=== PATIENT | male | born 1960 | race Caucasian/White ===

== ENCOUNTER → 2016-10-19 | Outpatient (REF) | payer BC | LOC: M LAB REF 12:48 | PROVIDERS: ATTEND Nurse Practitioner Adult Health | DX: E22.1 Hyperprolactinemia (principal); E29.1 Testicular hypofunction ==

== ENCOUNTER → 2017-04-19 | Outpatient (REF) | payer BC | LOC: M LAB REF 12:59 | PROVIDERS: ATTEND Nurse Practitioner Adult Health | DX: E29.1 Testicular hypofunction (principal) ==

== ENCOUNTER → 2018-01-31 | Outpatient (CLI) | payer BC | LOC: M WUC 18:19 | DX: R05 Cough (principal); J84.9 Interstitial pulmonary disease, unspecified; I51.7 Cardiomegaly | CPT/HCPCS: 71046 ==

== ENCOUNTER 2018-03-26 15:51 | Emergency (ER) | payer BC ==
[2018-03-26 16:54] LABS: BASO % 0.4 % (0.0-1.0); EOS % 0.4 % (0.0-3.0); HEMATOCRIT 35.8 % (42.0-52.0); HEMOGLOBIN 11.6 g/dl (13.5-17.5); IMMATURE GRANULOCYTE % 0.6 % (0-3.0); LYMPH # 1.2 10^3/uL (1.5-4.5); LYMPH % 17.1 % (24.0-44.0); MEAN CORPUSCULAR HEMOGLOBIN 27.4 pg (27.0-33.0); MEAN CORPUSCULAR HGB CONC 32.4 g/dl (32.0-36.5); MEAN CORPUSCULAR VOLUME 84.4 fl (80.0-96.0); MONO # 0.8 10^3/uL (0.0-0.8); MONO % 10.6 % (0.0-5.0); NEUTROPHILS # 5.1 10^3/uL (1.8-7.7); NEUTROPHILS % 70.9 % (36.0-66.0); PLATELET COUNT, AUTOMATED 120 10^3/uL (150-450); RED BLOOD COUNT 4.24 10^6/uL (4.30-6.10); RED CELL DISTRIBUTION WIDTH 15.2 % (11.5-14.5); VENOUS BASE EXCESS 1.4 (-2.0-2.0); VENOUS HCO3 24.8 MEQ/L (23.0-27.0); VENOUS O2 SATURATION 94.8 % (60.0-80.0); VENOUS PARTIAL PRESSURE CO2 35.4 mmHg (38.0-50.0); VENOUS PARTIAL PRESSURE O2 73.5 mmHg (30.0-50.0); VENOUS PH 7.464 UNITS (7.330-7.430); VENOUS STANDARD HCO3 25.6 MEQ/L; VENOUS TOTAL CO2 25.9 MEQ/L (24.0-28.0); WHITE BLOOD COUNT 7.2 10^3/uL (4.0-10.0)
[2018-03-26] MEDS: FUROSEMIDE 40 MG/4 ML VIAL (J1940) IV (17:00)
[2018-03-26 17:08] LABS: D-DIMER QUANT 1785.1 ng/ml (<500)
[2018-03-26] MEDS: IPRATROPIUM 0.5MG/ALBUTEROL 2.5MG INH SOL UD 3ML (DUONEB)(J7620) NEB (17:15)
[2018-03-26 17:19] LABS: ANION GAP 10 MEQ/L (8-16); BLOOD UREA NITROGEN 24 MG/DL (7-18); CALCIUM LEVEL 8.8 MG/DL (8.5-10.1); CARBON DIOXIDE LEVEL 25 MEQ/L (21-32); CHLORIDE LEVEL 109 MEQ/L (98-107); CPK CREATINE PHOSPHOKINASE 137 U/L (39-308); CREATININE FOR GFR 1.07 MG/DL (0.70-1.30); GLOMERULAR FILTRATION RATE > 60.0 (>56); GLUCOSE, FASTING 96 MG/DL (70-100); MB/CK RELATIVE INDEX 1.75 (< OR =4); NT-PRO BNP 1850 PG/ML (<125); POTASSIUM SERUM 3.9 MEQ/L (3.5-5.1); SODIUM LEVEL 144 MEQ/L (136-145); TROPONIN I 0.04 NG/ML (< 0.10)
[2018-03-26] MEDS ORDERED: ISOVUE-370 76% 100ML VIAL (Q9967) As Ordered (17:28)
[2018-03-26 19:23] LABS: PROTHROMBIN TIME 15.4 SECONDS (12.1-14.4)
== END 2018-03-26 19:48 | disposition home or self-care (01) ==
LOC: M ED 15:51
DX: I26.99 Other pulmonary embolism without acute cor pulmonale (principal); I50.9 Heart failure, unspecified; I11.0 Hypertensive heart disease with heart failure; I25.10 Atherosclerotic heart disease of native coronary artery without angina pectoris; Z82.49 Family history of ischemic heart disease and other diseases of the circulatory system; Z87.09 Personal history of other diseases of the respiratory system
CPT/HCPCS: Q9967

== ENCOUNTER → 2018-03-29 | Outpatient (REF) | payer BC ==
[2018-03-29 19:00] LABS: FIBRINOGEN 259 MG/DL (221-452)
[2018-03-29 19:16] LABS: TOTAL PROTEIN 6.5 GM/DL (6.4-8.2)
[2018-03-31 11:35] LABS: ALBUMIN 4.15 GM/DL (3.29-5.55); ALBUMIN % 63.8 % (55.8-66.1); ALPHA-1-GLOBULINS 0.39 GM/DL (0.17-0.41); ALPHA-2-GLOBULINS % 9.2 % (7.1-11.8); BETA-1-GLOBULINS % 7.7 % (4.7-7.2); BETA-2-GLOBULINS 0.32 GM/DL (0.19-0.55); BETA-2-GLOBULINS % 4.9 % (3.2-6.5); GAMMA GLOBULIN % 8.4 % (11.1-18.8)
[2018-03-31 11:36] LABS: GAMMA GLOBULINS 0.55 GM/DL (0.65-1.58)
[2018-03-31 14:08] LABS: IMMUNOTYPING SERUM LAMBDA ABNORMAL (NORMAL)
== END ==
LOC: M LAB REF 17:14
DX: I27.82 Chronic pulmonary embolism (principal)

== ENCOUNTER → 2018-03-31 | Outpatient (REF) | payer BC ==
[2018-04-01 20:06] LABS: TOTAL PROTEIN,RANDOM URINE 82.2 MG/DL (0.0-12.0)
== END ==
LOC: M LAB REF 16:58
DX: R76.8 Other specified abnormal immunological findings in serum (principal)
CPT/HCPCS: 86335

== ENCOUNTER → 2018-04-04 | Outpatient (REF) | payer BC ==
[2018-04-06 14:20] LABS: Lyme Disease IgG/IgM Antibodie <0.91 ISR (0.00-0.90); Lyme Disease IgM Ab Quantitati <0.80 index (0.00-0.79)
== END ==
LOC: M LAB REF 17:58
DX: S41.151A Open bite of right upper arm, initial encounter (principal); W57.XXXD Bitten or stung by nonvenomous insect and other nonvenomous arthropods, subsequent encounter; Y92.009 Unspecified place in unspecified non-institutional (private) residence as the place of occurrence of the external cause

== ENCOUNTER → 2018-04-22 | Outpatient (CLI) | payer BC | LOC: M RAD 11:41 | DX: I26.99 Other pulmonary embolism without acute cor pulmonale (principal); R06.00 Dyspnea, unspecified | CPT/HCPCS: 71046 ==

== ENCOUNTER → 2018-05-14 | Outpatient (CLI) | payer BC | LOC: M SLEEP 20:00 | DX: G47.33 Obstructive sleep apnea (adult) (pediatric) (principal) | CPT/HCPCS: 95811 ==

== ENCOUNTER → 2018-05-16 | Outpatient (CLI) | payer BC ==
[2018-05-16 18:09] LABS: ANION GAP 12 MEQ/L (8-16); BLOOD UREA NITROGEN 101 MG/DL (7-18); CALCIUM LEVEL 9.1 MG/DL (8.5-10.1); CARBON DIOXIDE LEVEL 26 MEQ/L (21-32); CHLORIDE LEVEL 95 MEQ/L (98-107); CREATININE FOR GFR 2.53 MG/DL (0.70-1.30); GLOMERULAR FILTRATION RATE 28.2 (>56); GLUCOSE, FASTING 150 MG/DL (70-100); POTASSIUM SERUM 5.4 MEQ/L (3.5-5.1); SODIUM LEVEL 133 MEQ/L (136-145)
== END ==
LOC: M WUC 11:43
DX: I50.43 Acute on chronic combined systolic (congestive) and diastolic (congestive) heart failure (principal)
CPT/HCPCS: 80048

== ENCOUNTER → 2018-06-23 | Outpatient (CLI) | payer BC ==
[2018-06-23 12:28] LABS: ANION GAP 6 MEQ/L (8-16); BLOOD UREA NITROGEN 21 MG/DL (7-18); CALCIUM LEVEL 8.5 MG/DL (8.5-10.1); CARBON DIOXIDE LEVEL 35 MEQ/L (21-32); CHLORIDE LEVEL 95 MEQ/L (98-107); CREATININE FOR GFR 1.03 MG/DL (0.70-1.30); GLOMERULAR FILTRATION RATE > 60.0 (>56); GLUCOSE, FASTING 140 MG/DL (70-100); HEMATOCRIT 25.9 % (42.0-52.0); HEMOGLOBIN 7.3 g/dl (13.5-17.5); MEAN CORPUSCULAR HEMOGLOBIN 22.7 pg (27.0-33.0); MEAN CORPUSCULAR HGB CONC 28.2 g/dl (32.0-36.5); MEAN CORPUSCULAR VOLUME 80.7 fl (80.0-96.0); POTASSIUM SERUM 3.6 MEQ/L (3.5-5.1); RED BLOOD COUNT 3.21 10^6/uL (4.30-6.10); SODIUM LEVEL 136 MEQ/L (136-145); WHITE BLOOD COUNT 5.8 10^3/uL (4.0-10.0)
[2018-06-23 12:55] LABS: IMMATURE PLATELET FRACTION % 4.4 % (0.0-10.9); PLATELET COUNT, AUTOMATED 55 10^3/uL (150-450)
== END ==
LOC: M WUC 09:51
DX: D64.9 Anemia, unspecified (principal); N18.9 Chronic kidney disease, unspecified
CPT/HCPCS: 80048

== ENCOUNTER → 2018-06-29 | Outpatient (CLI) | payer BC ==
[~2018-06-29] MED LIST: ALBU83IN; AMOX875T2 PO; ANDR1.62; ASPI1TAB PO; BROM1TAB; FERR324T2 PO; FLUTISP; FURO40TA2 PO; LIPI20TA PO; LISI-538; LISI10TA4 PO; METO1TAB32 PO; MIRA3350 PO; MULT1TAB11 PO; OMEP20CA3 PO; POTA10TA14; PROAAER10; STOO100C PO; TORS20TA2; XARE20TA PO; ZYLO300T6
[2018-06-29 17:53] LABS: BLOOD UREA NITROGEN 16 MG/DL (7-18); CALCIUM LEVEL 8.3 MG/DL (8.5-10.1); CARBON DIOXIDE LEVEL 27 MEQ/L (21-32); CHLORIDE LEVEL 105 MEQ/L (98-107); CREATININE FOR GFR 0.99 MG/DL (0.70-1.30); GLOMERULAR FILTRATION RATE > 60.0 (>56); GLUCOSE, FASTING 125 MG/DL (70-100); MAGNESIUM LEVEL 2.2 MG/DL (1.8-2.4); POTASSIUM SERUM 4.6 MEQ/L (3.5-5.1); SODIUM LEVEL 140 MEQ/L (136-145)
== END ==
LOC: M WUC 10:11
PROVIDERS: ATTEND Internal Medicine Nephrology
DX: N18.3 Chronic kidney disease, stage 3 (moderate) (principal); E87.6 Hypokalemia

== ENCOUNTER → 2018-07-07 | Outpatient (CLI) | payer BC ==
[2018-07-07 19:49] LABS: BLOOD UREA NITROGEN 21 MG/DL (7-18); CALCIUM LEVEL 8.8 MG/DL (8.5-10.1); CARBON DIOXIDE LEVEL 29 MEQ/L (21-32); CHLORIDE LEVEL 101 MEQ/L (98-107); CREATININE FOR GFR 0.94 MG/DL (0.70-1.30); GLOMERULAR FILTRATION RATE > 60.0 (>56); GLUCOSE, FASTING 129 MG/DL (70-100); MAGNESIUM LEVEL 1.9 MG/DL (1.8-2.4); POTASSIUM SERUM 4.6 MEQ/L (3.5-5.1); SODIUM LEVEL 138 MEQ/L (136-145)
== END ==
LOC: M WUC 15:50
PROVIDERS: ATTEND Internal Medicine Nephrology
DX: N17.9 Acute kidney failure, unspecified (principal)

== ENCOUNTER → 2018-07-18 | Outpatient (CLI) | payer BC ==
[~2018-07-18] MED LIST changes: -ALBU83IN; +ALBU83IN INH; +AMOX500C PO; -BROM1TAB; +BROM1TAB PO; -FLUTISP; +FLUTISP NARES; +K-TA1TAB PO; -PROAAER10; +PROAAER10 INH; -ZYLO300T6; +ZYLO300T6 PO
[2018-07-18 19:41] LABS: BLOOD UREA NITROGEN 18 MG/DL (7-18); CARBON DIOXIDE LEVEL 27 MEQ/L (21-32); CHLORIDE LEVEL 102 MEQ/L (98-107); GLOMERULAR FILTRATION RATE > 60.0 (>56); GLUCOSE, FASTING 113 MG/DL (70-100); POTASSIUM SERUM 4.3 MEQ/L (3.5-5.1); SODIUM LEVEL 138 MEQ/L (136-145)
== END ==
LOC: M WUC 15:44
PROVIDERS: ATTEND Internal Medicine Nephrology
DX: N17.9 Acute kidney failure, unspecified (principal)

== ENCOUNTER → 2018-07-31 | Outpatient (CLI) | payer BC ==
--- NOTE | 2018-08-03 09:36 | SLEEPCENT ---
DATE OF PROCEDURE: 07/31/2018 ORDERED BY: Dr. Kelley. INTERPRETATION: Nocturnal polysomnography was performed for the titration of pressure therapy in this patient with obstructive sleep apnea syndrome. For testing, a ResMed Matias FX nasal pillow device of large size was used with a double chin strap. Initial pressure of inspiratory 10 over expiratory 5 was applied to the circuit and the lights were extinguished. 7 hours and 57 minutes of data were reviewed. There were 403 minutes of sleep identified. Sleep latency was prolonged at 47 minutes. REM latency was short at 50 minutes. Sleep architecture was reasonably good with five REM cycles noted. Overall sleep efficiency 85.5%. The electrocardiogram showed regular rhythm. Heart rate 60 beats per minute. EEG showed reasonably normal waveforms for awake and sleep stages. Respiratory events were best palliated with inspiratory pressure 12 over expiratory pressure of 6 with some background EMG activity in the limb leads. Limb movement arousal index of 6.7. IMPRESSION: Obstructive sleep apnea syndrome (G47.33). RECOMMENDATIONS: Nightly use of bilevel pressure therapy, inspiratory 12 over expiratory 6.
== END ==
LOC: M SLEEP 20:00
PROVIDERS: ATTEND Internal Medicine Pulmonary Disease
DX: G47.33 Obstructive sleep apnea (adult) (pediatric) (principal)

== ENCOUNTER → 2018-08-03 | Outpatient (CLI) | payer BC ==
[2018-08-03 17:30] LABS: BLOOD UREA NITROGEN 20 MG/DL (7-18); CALCIUM LEVEL 9.3 MG/DL (8.5-10.1); CARBON DIOXIDE LEVEL 28 MEQ/L (21-32); CHLORIDE LEVEL 100 MEQ/L (98-107); CREATININE FOR GFR 1.07 MG/DL (0.70-1.30); GLOMERULAR FILTRATION RATE > 60.0 (>56); GLUCOSE, FASTING 159 MG/DL (70-100); MAGNESIUM LEVEL 1.7 MG/DL (1.8-2.4); SODIUM LEVEL 138 MEQ/L (136-145)
== END ==
LOC: M WUC 15:18
PROVIDERS: ATTEND Internal Medicine Nephrology
DX: N17.9 Acute kidney failure, unspecified (principal)

== ENCOUNTER 2018-08-10 12:52 | Outpatient (RCR) | payer BC ==
--- NOTE | 2018-07-27 14:39 | CARECAPL ---
Assessment Account #s: Initial Assessment General Diagnoses: AVR Date of event: Jun 17, 2018 Physician: Vicente Artis Allergies: Coded Allergies: No Known Drug Allergy (Verified Allergy, Unknown, 03/26/18) Date Entered Program: Jul 27, 2018 Risk strat for cardiac event: Moderate Exercise Date: Jul 27, 2018 Assessment: Initial Assessment Exercise Prescription Plan to build endurance through a monitored exercise program and to educate about cardiac risk factors and healthy life style Modalities initiated: Treadmill (2.0/0 mets 2.53 rpe 2), Cardio-Strider (will add), Nustep (will add), Arm Aerometer (1.5 mets 3.02 rpe3), Dumbells (will add), Recumbent Bike (r2 mets 3.54 rpe 3), Elliptimill (will add later) Frequency: 2-3 Duration (Minutes) 30-60 minutes total exercise a day. 6-15 work intervals in minutes. rest intervals in minutes. Functional Capacity Goal Sustained Metabolic Equivalent of a task (MET) goal of 4.75-5.25 for 15-20 minutes. Intensity: 3-Moderate Progression (METS) Increase by: .5 METS every: 2 sessions Angina with ex: No Target Heart Rate r+ 35-40 beta isael therapy Resistance Training: Yes Reps: 6-8 Hypertension: Yes Hypertension controlled with: Diet Resting 124/90 Peak Exercise BP 170/100 Meds see below Medications Scheduled (Multivitamin Men), 1 TAB PO DAILY, (Reported) Allopurinol (Zyloprim), 300 MG PO QHS, (Reported) Amoxicillin (Amoxicillin), 2,000 MG PO DAILYPRN, (Reported) Atorvastatin Calcium (Lipitor), 20 MG PO QHS, (Reported) Bromocriptine Mesylate (Bromocriptine Mesylate), 2.5 MG PO QHS, (Reported) Docusate Sodium (Stool Softener), 200 MG PO DAILY, (Reported) Ferrous Sulfate (Ferrous Sulfate), 324 MG PO BID, (Reported) Fluticasone Propionate (Fluticasone Propionate), 2 SPRAYS NARES DAILY, (Reported) Furosemide (Furosemide), 40 MG PO BID, (Reported) Lisinopril (Lisinopril), 10 MG PO DAILY, (Reported) Metoprolol Succinate (Metoprolol Succinate ER), 12.5 MG PO DAILY, (Reported) Omeprazole (Omeprazole), 20 MG PO DAILY, (Reported) Potassium Chloride (K-Tab), 40 MEQ PO BID, (Reported) Rivaroxaban (Xarelto), 20 MG PO DAILY, (Reported) Scheduled PRN Albuterol Sulfate (Albuterol Sulfate), 2.5 MG INH Q6H PRN for DYSPNEA, (Reported) Albuterol Sulfate (Proair Hfa), 2 PUFFS INH Q4HP PRN for DYSPNEA, (Reported) Polyethylene Glycol (Miralax), 17 GM PO DAILY PRN for CONSTIPATION, (Reported) Discontinued Medications Amoxicillin/Clavulanate Potas (Amoxicillin/Clavulanate P 875-125 mg), 875 MG PO BID, (Reported) Discontinued Reason: Pt states not taking Potassium Chloride (Potassium Chloride Cr), (Reported) Discontinued Reason: Pt states not taking Torsemide (Torsemide), (Reported) Discontinued Reason: Pt states not taking Target Goals Individual exercise Rx (1) BP 140/90 or 130/80 if DM or CKD (1) Aerobic active 30+min 5 days per week (1) Nutrition Date: Jul 27, 2018 Assessment: Initial Assessment Diabetes Diabetes: No Monitor Blood Sugar at home: No Weight Management Weight (lbs): 248.6 Height (inches): 73 Waist Circumference (Inches): 44 BMI: 32.7 Special Diet: low salt, mediteranean diet, low-fat, regular Alcohol: weekly Alcohol Type: beer Alcohol Amount: other (5-7) Diet Access Tool: Rate your plate Score: 53 Intervention Acid Remover Consult: Yes Nurse/patient discussion: Yes Dietary Goals smaller portions and better choices Education Eating Healthy Target goal LDL-C<100 if triglycerides are >200 Non-HDL-C should be <130 (1) LDL-C<70 for high risk patients (4) HbA1c<7% (1) BMI<25 Waist cir<40in M/<35in F (1) Education Date: Jul 27, 2018 Assessment: Initial Assessment Knowledge Test Score: 10 Family Support: Yes Tobacco use: No Tobacco Use Smokeless tobacco: No Intervention Referral to smoking cessation: No Individual education and couns: No Tobacco Adjunct: No Education class schedule given: No Attended education classes: Yes Education: CAD, Risk factors, med compliance, cardiac A&P, Angina S/S, Sexuality Target Goals Complete cessation of tobacco use (1). Psychosocial Date: Jul 27, 2018 Assessment: Initial Assessment Psych Test (Initial/Discharge) Tool Used: CESD Score: 2 Intervention Physician Consult: No Physician Referral: No Stress Management Class: Yes Uses Stress Management Skills: Yes Education Education: Coping Techniques, S/S depression, Relaxation Techniques Target Goal Assess presence or absence of depression using a valid screening tool (1). Maximize coping skills (2). Positive support system (2). Patient/Program Goal Preventative Medication: Yes Clopidogrel, Yes Beta blockade, Yes Statin/OTR lipid Lowering Fall Risk Assess: No Provider Assessment Session Number: 1 Provider Assessment: Proceed with rehab Isatu Horta RN Jul 27, 2018 14:39
== END 2018-08-11 ==
LOC: M CR 12:52
PROVIDERS: ATTEND Internal Medicine Cardiovascular Disease
DX: Z95.3 Presence of xenogenic heart valve (principal)

== ENCOUNTER → 2018-08-24 | Outpatient (CLI) | payer BC ==
[2018-08-24 17:02] LABS: BLOOD UREA NITROGEN 16 MG/DL (7-18); CALCIUM LEVEL 9.1 MG/DL (8.5-10.1); CARBON DIOXIDE LEVEL 27 MEQ/L (21-32); CHLORIDE LEVEL 105 MEQ/L (98-107); CREATININE FOR GFR 1.14 MG/DL (0.70-1.30); GLOMERULAR FILTRATION RATE > 60.0 (>56); GLUCOSE, FASTING 139 MG/DL (70-100); NT-PRO BNP 345 PG/ML (<125); POTASSIUM SERUM 4.1 MEQ/L (3.5-5.1); SODIUM LEVEL 141 MEQ/L (136-145)
== END ==
LOC: M WUC 14:18
PROVIDERS: ATTEND Internal Medicine Cardiovascular Disease
DX: Z95.2 Presence of prosthetic heart valve (principal)

== ENCOUNTER 2018-09-05 10:06 | Outpatient (RCR) | payer BC ==
--- NOTE | 2018-08-17 15:04 | CARECAPL ---
Assessment Account #s: Re-Assessment I General Diagnoses: AVR Date of event: Jun 17, 2018 Physician: Vicente Artis Allergies: Coded Allergies: No Known Drug Allergy (Verified Allergy, Unknown, 03/26/18) Date Entered Program: Jul 27, 2018 Risk strat for cardiac event: Moderate Exercise Date: Aug 17, 2018 Assessment: Re-Assessment I Exercise Prescription Modalities initiated: Treadmill, Cardio-Strider, Nustep, Arm Aerometer, Dumbells, Recumbent Bike Frequency: 3 Duration (Minutes) minutes total exercise a day. work intervals in minutes. rest intervals in minutes. Functional Capacity Goal Sustained Metabolic Equivalent of a task (MET) goal of for minutes. Intensity: 4-Quite a bit Progression (METS) Increase by: METS every: sessions Angina with ex: No Weight (pounds): 5 Reps: 8-12 Medications Scheduled (Multivitamin Men), 1 TAB PO DAILY, (Reported) Allopurinol (Zyloprim), 300 MG PO QHS, (Reported) Amoxicillin (Amoxicillin), 2,000 MG PO DAILYPRN, (Reported) Atorvastatin Calcium (Lipitor), 20 MG PO QHS, (Reported) Bromocriptine Mesylate (Bromocriptine Mesylate), 2.5 MG PO QHS, (Reported) Docusate Sodium (Stool Softener), 200 MG PO DAILY, (Reported) Ferrous Sulfate (Ferrous Sulfate), 324 MG PO BID, (Reported) Fluticasone Propionate (Fluticasone Propionate), 2 SPRAYS NARES DAILY, (Reported) Furosemide (Furosemide), 40 MG PO BID, (Reported) Lisinopril (Lisinopril), 10 MG PO DAILY, (Reported) Metoprolol Succinate (Metoprolol Succinate ER), 12.5 MG PO DAILY, (Reported) Omeprazole (Omeprazole), 20 MG PO DAILY, (Reported) Potassium Chloride (K-Tab), 40 MEQ PO BID, (Reported) Rivaroxaban (Xarelto), 20 MG PO DAILY, (Reported) Scheduled PRN Albuterol Sulfate (Albuterol Sulfate), 2.5 MG INH Q6H PRN for DYSPNEA, (Reported) Albuterol Sulfate (Proair Hfa), 2 PUFFS INH Q4HP PRN for DYSPNEA, (Reported) Polyethylene Glycol (Miralax), 17 GM PO DAILY PRN for CONSTIPATION, (Reported) Current BP 120/80 Med Change: No Target Goals Individual exercise Rx (1) BP 140/90 or 130/80 if DM or CKD (1) Aerobic active 30+min 5 days per week (1) Nutrition Date: Aug 17, 2018 Assessment: Re-Assessment I Medication Change: No Current Weight (pounds): 250.8 Intervention Casket Upholsterer Consult: Yes Nurse/patient discussion: Yes Target goal LDL-C<100 if triglycerides are >200 Non-HDL-C should be <130 (1) LDL-C<70 for high risk patients (4) HbA1c<7% (1) BMI<25 Waist cir<40in M/<35in F (1) Education Date: Aug 17, 2018 Assessment: Re-Assessment I Intervention Education class schedule given: Yes Attended education classes: Yes Education: cardiac A&P, Angina S/S, Sexuality Target Goals Complete cessation of tobacco use (1). Psychosocial Date: Aug 17, 2018 Assessment: Re-Assessment I Stress Management Class: Yes Uses Stress Management Skills: Yes Education Education: Coping Techniques, S/S depression, Relaxation Techniques Target Goal Assess presence or absence of depression using a valid screening tool (1). Maximize coping skills (2). Positive support system (2). Provider Assessment Session Number: 5 Provider Assessment: No changes Isatu Horta RN Aug 17, 2018 15:04
== END 2018-09-08 ==
LOC: M CR 10:06
PROVIDERS: ATTEND Internal Medicine Cardiovascular Disease
DX: Z95.3 Presence of xenogenic heart valve (principal)

== ENCOUNTER → 2018-09-22 | Outpatient (CLI) | payer BC ==
[2018-09-22 16:38] LABS: BLOOD UREA NITROGEN 18 MG/DL (7-18); CALCIUM LEVEL 9.3 MG/DL (8.5-10.1); CARBON DIOXIDE LEVEL 29 MEQ/L (21-32); CHLORIDE LEVEL 105 MEQ/L (98-107); CREATININE FOR GFR 0.96 MG/DL (0.70-1.30); GLOMERULAR FILTRATION RATE > 60.0 (>56); GLUCOSE, FASTING 81 MG/DL (70-100); NT-PRO BNP 237 PG/ML (<125); POTASSIUM SERUM 4.5 MEQ/L (3.5-5.1); SODIUM LEVEL 141 MEQ/L (136-145)
== END ==
LOC: M WUC 11:55
PROVIDERS: ATTEND Physician Assistant
DX: E78.5 Hyperlipidemia, unspecified (principal); R63.5 Abnormal weight gain; I38 Endocarditis, valve unspecified

== ENCOUNTER 2018-10-07 09:00 | Outpatient (RCR) | payer BC ==
--- NOTE | 2018-09-09 13:59 | CARECAPL ---
Assessment Account #s: Re-Assessment II General Diagnoses: AVR Date of event: Jun 17, 2018 Physician: Vicente Artis Allergies: Coded Allergies: No Known Drug Allergy (Verified Allergy, Unknown, 03/26/18) Date Entered Program: Jul 27, 2018 Risk strat for cardiac event: Moderate Exercise Date: Sep 09, 2018 Assessment: Re-Assessment II Exercise Prescription Modalities initiated: Treadmill, Cardio-Strider, Nustep, Arm Aerometer, Dumbells, Recumbent Bike Frequency: 2-3 Duration (Minutes) minutes total exercise a day. work intervals in minutes. rest intervals in minutes. Functional Capacity Goal Sustained Metabolic Equivalent of a task (MET) goal of for minutes. Intensity: 4-Quite a bit Progression (METS) Increase by: METS every: sessions Angina with ex: No Resistance Training: Yes Weight (pounds): 6 Reps: 8-12 Medications Scheduled (Multivitamin Men), 1 TAB PO DAILY, (Reported) Allopurinol (Zyloprim), 300 MG PO QHS, (Reported) Amoxicillin (Amoxicillin), 2,000 MG PO DAILYPRN, (Reported) Atorvastatin Calcium (Lipitor), 20 MG PO QHS, (Reported) Bromocriptine Mesylate (Bromocriptine Mesylate), 2.5 MG PO QHS, (Reported) Docusate Sodium (Stool Softener), 200 MG PO DAILY, (Reported) Ferrous Sulfate (Ferrous Sulfate), 324 MG PO BID, (Reported) Fluticasone Propionate (Fluticasone Propionate), 2 SPRAYS NARES DAILY, (Reported) Furosemide (Furosemide), 40 MG PO BID, (Reported) Lisinopril (Lisinopril), 10 MG PO DAILY, (Reported) Metoprolol Succinate (Metoprolol Succinate ER), 12.5 MG PO DAILY, (Reported) Omeprazole (Omeprazole), 20 MG PO DAILY, (Reported) Potassium Chloride (K-Tab), 40 MEQ PO BID, (Reported) Rivaroxaban (Xarelto), 20 MG PO DAILY, (Reported) Scheduled PRN Albuterol Sulfate (Albuterol Sulfate), 2.5 MG INH Q6H PRN for DYSPNEA, (Reported) Albuterol Sulfate (Proair Hfa), 2 PUFFS INH Q4HP PRN for DYSPNEA, (Reported) Polyethylene Glycol (Miralax), 17 GM PO DAILY PRN for CONSTIPATION, (Reported) Current BP 126/80 Med Change: No Target Goals Individual exercise Rx (1) BP 140/90 or 130/80 if DM or CKD (1) Aerobic active 30+min 5 days per week (1) Nutrition Date: Sep 09, 2018 Assessment: Re-Assessment II Med Change: No Current Weight (pounds): 264 Intervention Theatre Instructor Consult: Yes Nurse/patient discussion: Yes Education Eating Healthy Target goal LDL-C<100 if triglycerides are >200 Non-HDL-C should be <130 (1) LDL-C<70 for high risk patients (4) HbA1c<7% (1) BMI<25 Waist cir<40in M/<35in F (1) Education Date: Sep 09, 2018 Assessment: Re-Assessment II Intervention Education class schedule given: Yes Education: CAD, Risk factors, med compliance, cardiac A&P, Angina S/S, Sexuality Target Goals Complete cessation of tobacco use (1). Psychosocial Date: Sep 09, 2018 Assessment: Re-Assessment II Stress Management Class: Yes Uses Stress Management Skills: Yes Education Education: Coping Techniques, S/S depression, Relaxation Techniques Target Goal Assess presence or absence of depression using a valid screening tool (1). Maximize coping skills (2). Positive support system (2). Provider Assessment Session Number: 12 Provider Assessment: No changes Isatu Horta RN Sep 09, 2018 13:59
--- NOTE | 2018-10-03 09:38 | CARECAPL ---
Assessment Account #s: Re-Assessment II (reassessment III) General Diagnoses: AVR Date of event: Jun 17, 2018 Physician: Vicente Artis Allergies: Coded Allergies: No Known Drug Allergy (Verified Allergy, Unknown, 03/26/18) Date Entered Program: Jul 27, 2018 Risk strat for cardiac event: Moderate Exercise Date: Oct 03, 2018 Assessment: Re-Assessment II (reassessment III) Exercise Prescription Modalities initiated: Treadmill, Cardio-Strider, Nustep, Arm Aerometer, Dumbells, Recumbent Bike Frequency: 3 Duration (Minutes) minutes total exercise a day. work intervals in minutes. rest intervals in minutes. Functional Capacity Goal Sustained Metabolic Equivalent of a task (MET) goal of for minutes. Intensity: 4-Quite a bit Progression (METS) Increase by: METS every: sessions Angina with ex: No Resistance Training: Yes Weight (pounds): 8 Reps: 8-12 Medications Scheduled (Multivitamin Men), 1 TAB PO DAILY, (Reported) (Vitamin B-Complex), 1 TAB PO DAILY, (Reported) Allopurinol (Zyloprim), 300 MG PO QHS, (Reported) Atorvastatin Calcium (Lipitor), 20 MG PO QHS, (Reported) Bromocriptine Mesylate (Bromocriptine Mesylate), 2.5 MG PO QHS, (Reported) Docusate Sodium (Stool Softener), 200 MG PO DAILY, (Reported) Fluticasone Propionate (Fluticasone Propionate), 2 SPRAYS NARES DAILY, (Reported) Furosemide (Furosemide), 40 MG PO DAILY, (Reported) Lisinopril (Lisinopril), 10 MG PO DAILY, (Reported) Metoprolol Succinate (Metoprolol Succinate ER), 12.5 MG PO DAILY, (Reported) Omeprazole (Omeprazole), 20 MG PO DAILY, (Reported) Potassium Chloride (K-Tab), 40 MEQ PO DAILY, (Reported) Rivaroxaban (Xarelto), 20 MG PO DAILY, (Reported) Scheduled PRN Albuterol Sulfate (Albuterol Sulfate), 2.5 MG INH Q6H PRN for DYSPNEA, (Reported) Albuterol Sulfate (Proair Hfa), 2 PUFFS INH Q4HP PRN for DYSPNEA, (Reported) Polyethylene Glycol (Miralax), 17 GM PO DAILY PRN for CONSTIPATION, (Reported) Discontinued Medications Amoxicillin (Amoxicillin), 2,000 MG PO DAILYPRN, (Reported) Discontinued Reason: Pt states not taking Ferrous Sulfate (Ferrous Sulfate), 324 MG PO BID, (Reported) Discontinued Reason: Pt states not taking Current BP 150/80 Med Change: No Intervention Resistance Training: Yes Education: Self pulse, Ex safety, S/S to report, Low NA diet, BP medication, RPE Scale, Equipment orientation, warm up/cool down, Understand BP, Physical Active Education Goals Met: Yes Target Goals Individual exercise Rx (1) BP 140/90 or 130/80 if DM or CKD (1) Aerobic active 30+min 5 days per week (1) Nutrition Date: Oct 03, 2018 Assessment: Re-Assessment II (reassessment III) Med Change: No Medication Change: No Current Weight (pounds): 264.8 Intervention Program Strategist Consult: Yes Nurse/patient discussion: Yes Education Relate Diabetes in CAD, Eating Healthy Education Goals Met: Yes Target goal LDL-C<100 if triglycerides are >200 Non-HDL-C should be <130 (1) LDL-C<70 for high risk patients (4) HbA1c<7% (1) BMI<25 Waist cir<40in M/<35in F (1) Education Date: Oct 03, 2018 Assessment: Re-Assessment II (reassessment III) Intervention Attended education classes: Yes Education: tobacco triggers, CAD, Risk factors, med compliance, cardiac A&P, Angina S/S, Sexuality Education Goals Met: Yes Target Goals Complete cessation of tobacco use (1). Psychosocial Date: Oct 03, 2018 Assessment: Re-Assessment II (reassessment III) Stress Management Class: Yes Uses Stress Management Skills: Yes Education Education: Coping Techniques, S/S depression, Relaxation Techniques Education Goals Met: Yes Target Goal Assess presence or absence of depression using a valid screening tool (1). Maximize coping skills (2). Positive support system (2). Fall Risk Assess: No Provider Assessment Session Number: 16 Provider Assessment: No changes Isatu Horta RN Oct 03, 2018 08:59
[~2018-10-07 09:00] MED LIST changes: +VITATAB73 PO
== END 2018-10-09 ==
LOC: M CR 09:00
PROVIDERS: ATTEND Internal Medicine Cardiovascular Disease
DX: Z95.3 Presence of xenogenic heart valve (principal)

== ENCOUNTER 2018-10-17 13:52 | Outpatient (RCR) | payer BC ==
[~2018-10-17 13:52] MED LIST changes: -ASPI1TAB PO; +ASPI81TA26 PO
--- NOTE | 2018-10-17 14:47 | CARECAPL ---
Assessment Account #s: Re-Assessment II (discharge assessment) General Diagnoses: AVR Date of event: Jun 17, 2018 Physician: Vicente Artis Allergies: Coded Allergies: No Known Allergies (Unverified , 10/05/18) Date Entered Program: Jul 27, 2018 Risk strat for cardiac event: Moderate Exercise Date: Oct 17, 2018 Assessment: Followup/Discharge Exercise Prescription Modalities initiated: Treadmill, Cardio-Strider, Nustep, Arm Aerometer, Dumbells, Recumbent Bike Frequency: 3 Duration (Minutes) minutes total exercise a day. work intervals in minutes. rest intervals in minutes. Functional Capacity Goal Sustained Metabolic Equivalent of a task (MET) goal of for minutes. Intensity: 3-Moderate Progression (METS) Increase by: METS every: sessions Angina with ex: No Resistance Training: Yes Weight (pounds): 10 Reps: 8-12 Hypertension: Yes Hypertension controlled with: Diet Resting 134/88 Peak Exercise BP 180/90 Meds see below Medications Scheduled (Multivitamin Men), 1 TAB PO DAILY, (Reported) Allopurinol (Zyloprim), 300 MG PO QHS, (Reported) Atorvastatin Calcium (Lipitor), 20 MG PO QHS, (Reported) Bromocriptine Mesylate (Bromocriptine Mesylate), 2.5 MG PO QHS, (Reported) Docusate Sodium (Stool Softener), 200 MG PO DAILY, (Reported) Fluticasone Propionate (Fluticasone Propionate), 2 SPRAYS NARES DAILY, (Reported) Furosemide (Furosemide), 40 MG PO DAILY, (Reported) Lisinopril (Lisinopril), 10 MG PO DAILY, (Reported) Metoprolol Succinate (Metoprolol Succinate), 12.5 MG PO DAILY, (Reported) Omeprazole (Omeprazole), 20 MG PO DAILY, (Reported) Potassium Chloride (K-Tab ER), 40 MEQ PO DAILY, (Reported) Rivaroxaban (Xarelto), 20 MG PO DAILY, (Reported) Vitamin B Complex (Vitamin B Complex), 1 TAB PO DAILY, (Reported) Scheduled PRN Albuterol Sulf (Albuterol Sulfate), 2.5 MG INH Q6H PRN for DYSPNEA, (Reported) Albuterol Sulfate (Proair Hfa), 2 PUFFS INH Q4HP PRN for DYSPNEA, (Reported) Polyethylene Glycol 3350 (Miralax), 17 GM PO DAILY PRN for CONSTIPATION, (Reported) Education Goals Met: Yes Target Goals Individual exercise Rx (1) BP 140/90 or 130/80 if DM or CKD (1) Aerobic active 30+min 5 days per week (1) Nutrition Date: Oct 17, 2018 Assessment: Followup/Discharge Med Change: No Diabetes Diabetes: No Medication Change: No Diet Access Tool: Rate your plate (not completed on d/c) Intervention Structural Layout Worker Consult: Yes Nurse/patient discussion: Yes Diet Class: Yes Referral to Diabetes education: No Referral to lipid clinic: No Referral to weight mangement p: No Education Eating Healthy Education Goals Met: Yes Target goal LDL-C<100 if triglycerides are >200 Non-HDL-C should be <130 (1) LDL-C<70 for high risk patients (4) HbA1c<7% (1) BMI<25 Waist cir<40in M/<35in F (1) Education Date: Oct 17, 2018 Assessment: Followup/Discharge Knowledge Test Score: 10 Intervention Education class schedule given: Yes Attended education classes: Yes Education: CAD, Risk factors, med compliance, cardiac A&P, Angina S/S, Sexuality Education Goals Met: Yes Target Goals Complete cessation of tobacco use (1). Psychosocial Date: Oct 17, 2018 Assessment: Followup/Discharge Psych Test (Initial/Discharge) Tool Used: CESD Score: 3 Intervention Physician Consult: No Physician Referral: No Med Change: Yes Stress Management Class: Yes Uses Stress Management Skills: Yes Education Education: Coping Techniques, S/S depression, Relaxation Techniques Education Goals Met: Yes Target Goal Assess presence or absence of depression using a valid screening tool (1). Maximize coping skills (2). Positive support system (2). Fall Risk Assess: No Provider Assessment Session Number: 20 Provider Assessment: Please add/change: (d/c assessment) Isatu Horta RN Oct 17, 2018 14:47
== END 2018-11-08 ==
LOC: M CR 13:52
PROVIDERS: ATTEND Internal Medicine Cardiovascular Disease
DX: Z95.3 Presence of xenogenic heart valve (principal)

== ENCOUNTER 2018-10-24 12:17 | Outpatient (RCR) | payer SELFPAY | END 2018-11-08 | LOC: M CR 12:17 | PROVIDERS: ATTEND Internal Medicine Cardiovascular Disease | DX: Z95.3 Presence of xenogenic heart valve (principal) ==

== ENCOUNTER → 2019-01-09 | Outpatient (CLI) | payer BC ==
[~2019-01-09] MED LIST changes: +MM S100C PO; -OMEP20CA3 PO; +OMEP20CA4 PO; -STOO100C PO
[2019-01-09 10:51] LABS: BLOOD UREA NITROGEN 17 MG/DL (7-18); CREATININE FOR GFR 0.95 MG/DL (0.70-1.30); GLOMERULAR FILTRATION RATE > 60.0 (>56); GLUCOSE, FASTING 120 MG/DL (70-100)
[2019-01-09 10:52] LABS: CALCIUM LEVEL 8.7 MG/DL (8.5-10.1); CARBON DIOXIDE LEVEL 27 MEQ/L (21-32); CHLORIDE LEVEL 107 MEQ/L (98-107); NT-PRO BNP 42 PG/ML (<125); POTASSIUM SERUM 4.1 MEQ/L (3.5-5.1); SODIUM LEVEL 139 MEQ/L (136-145)
== END ==
LOC: M WUC 09:15
PROVIDERS: ATTEND Internal Medicine Cardiovascular Disease
DX: I50.83 High output heart failure (principal)

== ENCOUNTER 2019-08-31 19:44 | Inpatient (IN) | payer BC ==
[~2019-08-31] VITALS: Ht 188 cm; Wt 130.5 kg
[~2019-08-31 19:44] MED LIST changes: -BROM1TAB PO; +BROM2.5T2 PO; +OMEP1CAP73 PO; -OMEP20CA4 PO
[2019-08-31] MEDS ORDERED: NOREPINEPHRINE 4 MG/4 ML AMP As Ordered ONE (19:58)
[2019-08-31] MEDS ORDERED: NOREPINEPHRINE BITARTRATE 8 MG in D5W 492 ML IV SCH (20:00)
[2019-08-31] MEDS ORDERED: ISOVUE-370 76% 100ML VIAL (Q9967) As Ordered ONE (20:37)
[2019-08-31 20:40] LABS: HEMATOCRIT 48.2 % (42.0-52.0); HEMOGLOBIN 16.7 g/dl (13.5-17.5); MEAN CORPUSCULAR HEMOGLOBIN 31.9 pg (27.0-33.0); MEAN CORPUSCULAR HGB CONC 34.6 g/dl (32.0-36.5); MEAN CORPUSCULAR VOLUME 92.2 fl (80.0-96.0); PLATELET COUNT, AUTOMATED 163 10^3/uL (150-450); RED BLOOD COUNT 5.23 10^6/uL (4.30-6.10)
[2019-08-31 20:43] LABS: WHITE BLOOD COUNT 14.4 10^3/uL (4.0-10.0)
[2019-08-31 20:50] LABS: INR 1.9; PROTHROMBIN TIME 21.5 SECONDS (11.8-14.0)
[2019-08-31 20:51] LABS: PARTIAL THROMBOPLASTIN TIME 39.4 SECONDS (25.0-38.4)
[2019-08-31 20:54] LABS: ATYPICAL LYMPH 4 % (0-5); EOSINOPHILS 3 % (0-3); LYMPHOCYTES 48 % (16-44); METAMYELOCYTES 1 % (0-0); MONOCYTES 2 % (0-5); MYELOCYTES 2 % (0-0); NEUTROPHILS 39 % (28-66); PLATELET ESTIMATE NORMAL (NORMAL)
--- NOTE | 2019-08-31 21:04 | REPVR ---
PROCEDURE INFORMATION: Exam: CT Head Without Contrast Exam date and time: 08/31/2019 8:32 PM Age: 59 years old Clinical indication: Altered mental status/memory loss and other: Cardian arrest; Additional info: AMS TECHNIQUE: Imaging protocol: Computed tomography of the head without contrast. Radiation optimization: All CT scans at this facility use at least one of these dose optimization techniques: automated exposure control; mA and/or kV adjustment per patient size (includes targeted exams where dose is matched to clinical indication); or iterative reconstruction. COMPARISON: No relevant prior studies available. FINDINGS: Brain: There is loss of romo-white differentiation bilaterally, the appearance indicating global ischemia. The degree of sulcal or ventricular effacement, if any, would best be assessed with comparison to prior study. There is no evidence of intracranial hemorrhage. Midline shift: No midline shift. Ventricles: See Brain Finding. Bones/joints: Unremarkable. No acute fracture. Sinuses: The visualized sinuses are unremarkable. The visualized sinuses are unremarkable. Mastoid air cells: There is no mastoid effusion detected. There is no mastoid effusion detected. Soft tissues: Unremarkable. Oropharynx: No tonsillar herniation. IMPRESSION: 1. Findings indicate global ischemia, with loss of romo-white differentiation throughout. Comparison with previous head CT would be helpful to assess for the degree of edema. 2. No tonsillar herniation. 3. No hemorrhage. Electronically signed by: Yuli Mendoza On 08/31/2019 21:03:46 PM
--- NOTE | 2019-08-31 21:12 | REPVR ---
PROCEDURE INFORMATION: Exam: CT Angiography Chest With Contrast Exam date and time: 08/31/2019 8:41 PM Age: 59 years old Clinical indication: Other: Cardiac arrest TECHNIQUE: Imaging protocol: Computed tomographic angiography of the chest with intravenous contrast. 3D rendering: MIP and/or 3D reconstructed images were created by the technologist. Radiation optimization: All CT scans at this facility use at least one of these dose optimization techniques: automated exposure control; mA and/or kV adjustment per patient size (includes targeted exams where dose is matched to clinical indication); or iterative reconstruction. Contrast material: ISOVUE 370; Contrast volume: 75 ml; Contrast route: IV; COMPARISON: CT ANGIO CHEST 03/26/2018 5:32 PM FINDINGS: Tubes, catheters and devices: ET tube is in the trachea above the radha. Pulmonary arteries: No pulmonary embolism identified. Aorta: Unremarkable. No aortic aneurysm. No aortic dissection. Lungs: Dependent atelectasis in both lungs. Pleural space: No pleural effusion. No pneumothorax. Heart: Cardiomegaly. Mediastinum: Cardiomediastinal postsurgical changes are noted. Lymph nodes: No lymphadenopathy. Bones/joints: Unremarkable. No acute fracture. Soft tissues: Unremarkable. IMPRESSION: 1. Dependent atelectasis in both lungs. 2. Cardiomegaly. Electronically signed by: Yuli Mendoza On 08/31/2019 21:12:16 PM
[2019-08-31 21:16] LABS: CK-MB VALUE MASS 2.7 NG/ML (<3.6); CREATININE FOR GFR 1.46 MG/DL (0.70-1.30); MB/CK RELATIVE INDEX 1.56 (< OR =4); POTASSIUM SERUM 3.6 MEQ/L (3.5-5.1); TROPONIN I 0.12 NG/ML (< 0.10)
[2019-08-31] MEDS ORDERED: LACRILUBE (AKWA TEARS) OPHTH OINT 3.5 GM OU PRN (22:00)
[2019-08-31] MEDS ORDERED: ACETAMINOPHEN 650 MG SUPP PR PRN (22:00)
[2019-08-31] MEDS ORDERED: ACETAMINOPHEN 650 MG SUPP PR ONE (22:00)
[2019-08-31] MEDS ORDERED: PROPOFOL 1,000 MG/100 ML VIAL As Ordered ONE (22:07)
[2019-08-31] MEDS: FAMOTIDINE IV BAG 20 MG in IV 1 EA IV SCH (22:15)
[2019-08-31] MEDS: propofoL 1,000 MG in IV 1 EA IV SCH ×2 (22:16→22:36)
[2019-08-31 23:22] LABS: MAGNESIUM LEVEL 2.2 MG/DL (1.8-2.4)
[2019-08-31 23:49] LABS: PHOSPHORUS LEVEL 9.1 MG/DL (2.5-4.9)
[2019-09-01] VITALS (62 sets, daily range): BP systolic 67–182; BP diastolic 40–108; O2SAT 98–100
--- NOTE | 2019-09-01 01:13 | HPEPDOC ---
[facility] Medical History & Physical Date of Admission Aug 31, 2019 Date of Service: Aug 31, 2019 Attending Physician: ALLY NORIEGA DO History and Physical CHIEF COMPLAINT: Cardiac arrest HISTORY OF PRESENT ILLNESS: Patient is a 59-year-old male who presents to the emergency department on 08/31/2019 after cardiac arrest status post ROSC. Patient is currently intubated and unable to provide further history. Information obtained from ED staff and family bedside. Per , patient had been feeling fine all day without any reported complaints. Patient had just come back from changing a light bulb when he suddenly collapsed and was unresponsive. At that time with called 911. [place] states she was instructed to start CPR by only took a few compressions before emergency personnel responded. reports that EMS arrived at patient's bedside approximately 10 minutes after initial collapse. Patient reportedly had return to circulation after CPR with an initial rate of A. fib with RVR, but interrupted a hospital suffered asystolic cardiac arrest. Patient achieved for asking and Route however CPR time apparently prolonged. In ED patient was noted to be hypotensive and started on Levaquin. LMA was replaced with endotracheal intubation. Patient remained unresponsive with pupils fixed and dilated. Initial head CT showed poor romo-white matter differentiation concerning for anoxic injury. Apparently it has met was initiated by the ED. Per ED physician, we'll patient in the emergency department he opened his eyes spontaneously and was biting at the tube and therefore propofol was started. At time of evaluation in the ED patient was intubated and sedated on propofol. It had been titrated off. 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 However patient did receive aortic valve replacement approximately 12 years ago which needed revision in June 2018. Patient also with aortic aneurysm requiring repair at approximately 2009. She states that she follows up with his doctors and regulator operator regularly at [facility]. He's never had any issues with coronary artery disease. Patient's only known history of arrhythmias with atrial fibrillation following aortic valve replacement for which he currently takes Xarelto. PAST MEDICAL HISTORY: 1. Hypertension. 2. Aortic aneurysm status post repair in approximately 2009. 3. Aortic valve replacement status post replacement approximately 2007 with revision in June 2018. 4. History of atrial fibrillation associated with aortic valve replacement. 5. History of acute kidney injury requiring dialysis for prolonged prolonged hospitalization due to sepsis area per kidneys made full recovery and dialysis has not been needed for many years. PAST SURGICAL HISTORY: 1. Aortic valve replacement in 2007 with revision in June 2018 2. Aortic aneurysm repair approximately 2009 SOCIAL HISTORY: Marital status: Tobacco use: Denies ETOH: Denies Illicit drug use: Denies FAMILY HISTORY: Family history unknown at this time ALLERGIES: Please see below. REVIEW OF SYSTEMS: Unable to be obtained due to current clinical condition. HOME MEDICATIONS: Please see below. PHYSICAL EXAMINATION: VITAL SIGNS: Please see below. GENERAL: Unresponsive HENT: Normocephalic atraumatic EYES: Pupils pinpoint bilaterally, no scleral icterus CARDIOVASCULAR: Slightly tachycardia with heart rate in the 110s, no lower extremity edema RESPIRATORY: Coarse breath sounds bilaterally, patient intubated ABDOMINAL: Soft, nondistended, hypoactive bowel sounds EXTREMITIES: No spontaneous movements of upper or lower extremities NEUROLOGICAL: Unresponsive with GCS of 2T SKIN: Warm and dry, midline sternal surgical scar LABORATORY DATA: See below. IMAGING: CT of the head independently reviewed with diffuse poor romo-white matter differentiation noted MICROBIOLOGY: Please see below. ASSESSMENT AND PLAN: #Asystolic Cardiac Arrest - Unknown etiology this time, however, suspect cardiac cause given significant c ardiac history and sudden collapse - Plan for echo in the morning. Heparin drip considered however patient undergoing targeted temperature management and with recent dosing of Xarelto Heparin drip to be held pending echo and elevated troponins. No ST elevation noted on EKG - Will start targeted-temperature management to temperature 36C, monitor I's every 4 hours, including ABG -Will use propofol for sedation - Plan for Art-line and central line placement - Initial CT head showing signs of anoxic injury with likely poor outcome #Anoxic encephalopathy - CT head with poor romo-white matter differentiation highly suggestive of severe anoxic injury - Discussed at length with family will proceed with targeted temperature management and await neurologic status - If no improvement in mentation will consider repeat CT had or MRI in 48-72 hours #Acute hypoxic and hypercapnic respiratory failure - Secondary to cardiac arrest - Currently intubated, monitor ABGs every 4 hours #Cardiogenic shock - With Levophed started in emergency department now titrated off - Will resume Levophed if needed to maintain a map greater than 65 #TARSHA - Secondary cardiac arrest - Continues to have good urine output, will monitor strict I's and O's #Hyperglycemia - No known history of diabetes - Will check A1c - Start insulin drip on hypothermia #Afib with RVR - Reported per EMS, now sinus tach - Patient with a history of A. fib on Xarelto - We will consider starting heparin drip in the morning echo and troponins are pending Diet: NPO while undergoing hypothermia DVT/GI Ppx: Heparin subcutaneous, Pepcid L/T/D: ETT, OG, right femoral central line, left radial art line, Thomas, rectal temperature probe Drips: Propofol, and insulin Code Status: Full code. With this patient's surrogate decision maker area discussed at length with who at this time would like patient to be full code. We addressed with family daily as hospital course progresses. Dispo: We will continue to monitor in the ICU was as of 1:1. Critical Care Time: 45 minutes. Time spent obtaining history, evaluated patient, interpreting labs, and assessing success of interventions. Time spent independen t of other providers and total procedures.. [id number] Vital Signs Vital Signs Date Time Temp Pulse Resp B/P (MAP) Pulse Ox O2 Delivery O2 Flow Rate FiO2 08/31/19 21:15 106 22 97 Ventilator 08/31/19 21:10 199/116 (143) 08/31/19 20:13 15.0 08/31/19 20:09 90 08/31/19 20:00 98.0 Laboratory Data Labs 24H Laboratory Tests 2 08/31/19 20:10: POC pH (Misc Panel) 6.920*L, POC Base Excess (Misc Panel) -17.0L, POC Saturated Percent O2 (Misc) 92L, POC pO2 (Misc Panel) 104.0, POC pCO2 (Misc Panel) 74.5*H, POC HCO3 (Misc Panel) 15.3L, POC Total CO2 (Misc Panel) 18.0L 08/31/19 20:27: Immature Granulocyte % (Auto) , Neutrophils (%) (Auto) , Lymphocytes # (Auto) , Nucleated Red Blood Cells % (auto) 0.1H, Neutrophils 39, Band Neutrophils 1, Lymphocytes (Manual) 48H, Monocytes (Manual) 2, Eosinophils (Manual) 3, Metamyelocytes 1H, Myelocytes 2H, Atypical Lymphocytes 4, Red Blood Cell Morphology NORMAL, Platelet Estimate NORMAL, Prothrombin Time 21.5H, Prothromb Time International Ratio 1.90, Activated Partial Thromboplast Time 39.4H, Anion Gap 18H, Glomerular Filtration Rate 53.0L, Calcium Level 8.0L, Phosphorus Level 9.1H, Magnesium Level 2.2, Total Creatine Kinase 173, Creatine Kinase MB 2.7, Creatine Kinase MB Relative Index 1.56, Troponin I 0.12H 08/31/19 21:22: POC pH (Misc Panel) 7.040*L, POC Base Excess (Misc Panel) -15.0L, POC Saturated Percent O2 (Misc) 98, POC pO2 (Misc Panel) 159.0H, POC pCO2 (Misc Panel) 58.1H, POC HCO3 (Misc Panel) 15.7L, POC Total CO2 (Misc Panel) 17.0L 09/01/19 00:53: Bedside Glucose (Misc Panel) 193H CBC/BMP Laboratory Tests 08/31/19 20:27 Home Medications Scheduled (Multivitamin Men) 1 Tab Tab, 1 TAB PO DAILY Allopurinol (Zyloprim) 300 Mg Tab, 300 MG PO QHS Atorvastatin Calcium (Lipitor) 20 Mg Tab, 20 MG PO QHS Bromocriptine Mesylate (Bromocriptine Mesylate) 2.5 Mg Tab, 2.5 MG PO QHS Fluticasone Propionate (Fluticasone Propionate) 50 Mcg/Act Spr, 2 SPRAYS NARES DAILY Furosemide (Furosemide) 40 Mg Tab, 40 MG PO DAILY Lisinopril (Lisinopril) 10 Mg Tab, 10 MG PO DAILY Metoprolol Succinate (Metoprolol Succinate) 25 Mg Tab, 12.5 MG PO DAILY Omeprazole (Omeprazole) 20 Mg Cap, 20 MG PO DAILY Potassium Chloride (K-Tab ER) 20 Meq Tab, 40 MEQ PO DAILY Rivaroxaban (Xarelto) 20 Mg Tab, 20 MG PO DAILY Vitamin B Complex (Vitamin B Complex) 1 Tab Tab, 1 TAB PO DAILY Scheduled PRN Albuterol Sulf (Albuterol Sulfate) 2.5 Mg/3 Ml Nebu, 2.5 MG INH Q6H PRN for DYSPNEA Albuterol Sulfate (Proair Hfa) 108 Mcg/Act Aer, 2 PUFFS INH Q4HP PRN for DYSPNEA Allergies Coded Allergies: No Known Allergies (Unverified , 10/05/18) A-FIB/CHADSVASC A-FIB History Current/History of A-Fib/PAF?: Yes Current PO Anticoag Therapy: Yes Age/Risk Factor Scoring CHADSVASC: CHADSVASC Response (Comments) Value Age Risk Factor Age < 65 years old 0 Gender Risk Factor Male 0 Hx of CHF No 0 Hx of HTN Yes 1 Hx of Stroke/TIA/or VTE No 0 Hx of Diabetes No 0 Hx of Vascular Disease No 0 Total 1 Treatment Treatment ordered: Holding Other Other anticoagulant ordered: Holding Xarelto, plan for heparin gtt in the am Reason Anticoagulant not given: Other Other reason anticoagulant not: Hypothermia initiated ALLY NORIEGA DO Sep 01, 2019 01:13
--- NOTE | 2019-09-01 01:14 | ROOPDOC ---
[facility] Report Of Operation Report of Operation DATE OF PROCEDURE: 08/31/2019 PROCEDURE: Unsuccessful attempt at right internal jugular central line placement followed by successful placement of right femoral central line placement under ultrasound guidance INDICATION: Cardiac arrest CONSENT: Consent was obtained from away prior to procedure. All risks, benefits, alternatives were explained at length. All questions answered. Signed consent in chart. PROCEDURE NOTE: A time-out was called prior to procedure verifying patient, procedure, indication, and necessary treatment. The patient with placed in supine position for central line placement. The patient's right neck was prepped and draped in sterile fashion a finder needle was utilized to access the right internal jugular. Multiple attempts to thread the catheter resulted in resistance despite visualization of the tip of the guidewire in the IJ and continued blood return. After multiple unsuccessful attempts, central and placement at right internal jugular site was abandoned. The finder needle was withdrawn and pressure was applied at the site of insertion until hemostasis was achieved. Decision was made to place a right femoral central line at that time. The patient was prepped and draped in sterile fashion for right femoral central line placement. Finder needle was initially inserted into the right from femoral artery with pulsatile blood return. Finder needle was removed and pressure was held until hemostasis was achieved. No hematoma noted. A triple lumen 7 Cymraes catheter was introduced into the right common femoral vein using Seldinger technique under ultrasound guidance. The catheter was removed completely over the guidewire and appropriate nonpulsatile blood was returned. Each lumen of the catheter was evacuated of air and flushed with sterile saline. Catheter was sutured in place to the skin and a sterile dressing applied. The patient tolerated the procedure well with no apparent complications noted. Estimated blood loss, approximately 30 mL. ALLY NORIEGA DO Sep 01, 2019 01:14
[2019-09-01] MEDS ORDERED: LORazepam 2 MG/ML VIAL (J2060) IV PRN (01:15)
--- NOTE | 2019-09-01 01:15 | ROOPDOC ---
[facility] Report Of Operation Report of Operation DATE OF PROCEDURE: 08/31/19 PROCEDURE: Left Radial Arterial Line Placement Under Ultrasound Guidance INDICATION: [Hypotension] CONSENT: Consent was obtained from patient prior to procedure. All risks, benefits, alternatives were explained at length. All questions answered. Signed consent in chart. PROCEDURE NOTE: A time-out was called prior to procedure verifying patient, procedure, indication, and necessary treatment. Catracho's test was performed to ensure adequate perfusion. The patient's left wrist was prepped and draped in sterile fashion. A 20-gauge Arrow arterial line was introduced into the radial artery under ultrasound guidance. The catheter was threaded smoothly over the guidewire and the needle was removed with appropriate pulsatile blood return. The catheter was then sutured in placed and a sterile dressing was applied. The perfusion to the distal extremity was checked and adequate. The patient tolerated the procedure well with no apparent complications. Estimated blood loss less than 2 mL. ALLY NORIEGA DO Sep 01, 2019 01:15
[2019-09-01] MEDS ORDERED: GLUCOSE 4 GM CHEW TABLET PO PRN (01:30)
[2019-09-01] MEDS ORDERED: GLUCAGON FOR INJ 1 MG VIAL (J1610) SC PRN (01:30)
[2019-09-01] MEDS ORDERED: DEXTROSE 50% 50 ML SYRINGE IV PRN (01:30)
[2019-09-01] MEDS: propofoL 1,000 MG in IV 1 EA IV SCH ×3 (01:43→08:41)
[2019-09-01] MEDS: INSULIN HUMAN REGULAR 100 UNITS in NS 99 ML IV SCH ×2 (01:44→17:41)
[2019-09-01 01:53] LABS: ABG BASE EXCESS -8.4 (-2.0-2.0); ABG HCO3 16.9 MEQ/L (22.0-26.0); ABG O2 SATURATION 99.1 % (95.0-99.0); ABG PARTIAL PRESSURE CO2 33.8 mmHg (35.0-45.0); ABG PARTIAL PRESSURE O2 158.9 mmHg (75.0-100.0); ABG TOTAL CO2 17.9 MEQ/L (22.0-29.0); ABG pH (ARTERIAL) 7.313 UNITS (7.350-7.450)
[2019-09-01] MEDS: HEPARIN SOD (PORCINE) 5000 UNITS/ML VIAL (J1644 PER 1000UNITS) SC SCH ×2 (01:54→06:02)
[2019-09-01 02:08] LABS: HEMOGLOBIN 17.5 g/dl (13.5-17.5); MEAN CORPUSCULAR HEMOGLOBIN 31.8 pg (27.0-33.0); MEAN CORPUSCULAR HGB CONC 36.5 g/dl (32.0-36.5); MEAN CORPUSCULAR VOLUME 87.1 fl (80.0-96.0); PLATELET COUNT, AUTOMATED 187 10^3/uL (150-450); RED BLOOD COUNT 5.51 10^6/uL (4.30-6.10); WHITE BLOOD COUNT 28.3 10^3/uL (4.0-10.0)
[2019-09-01 02:18] LABS: INR 2.06; PARTIAL THROMBOPLASTIN TIME 31.7 SECONDS (25.0-38.4)
[2019-09-01] MEDS: levETIRAcetam INJection 1,000 MG in D5W 100 ML IV SCH ×2 (02:19→14:02)
[2019-09-01 02:27] LABS: ALT/SGPT 110 U/L (12-78); BILIRUBIN,TOTAL 0.4 MG/DL (0.2-1.0); BLOOD UREA NITROGEN 17 MG/DL (7-18); CALCIUM LEVEL 5.7 MG/DL (8.5-10.1); CARBON DIOXIDE LEVEL 15 MEQ/L (21-32); CHLORIDE LEVEL 119 MEQ/L (98-107); GLOMERULAR FILTRATION RATE > 60.0 (>56); GLUCOSE, FASTING 149 MG/DL (70-100); MAGNESIUM LEVEL 1.3 MG/DL (1.8-2.4); PHOSPHORUS LEVEL 2.4 MG/DL (2.5-4.9); POTASSIUM SERUM 2.7 MEQ/L (3.5-5.1); SODIUM LEVEL 146 MEQ/L (136-145); TOTAL PROTEIN 5.2 GM/DL (6.4-8.2)
[2019-09-01] MEDS ORDERED: KCL 20MEQ IN 100ML SWI (KRUN) 20 MEQ in IV 1 EA IV ONE ×2 (02:45)
[2019-09-01] MEDS ORDERED: MAG SULF 1GM/100ML (MAG RUN) 1 GM in IV 1 EA IV ONE ×2 (03:00→09:30)
[2019-09-01] MEDS ORDERED: CALCIUM GLUCONATE 1,000 MG in D5W MINI-BAG PLUS 100 ML IV ONE (03:00)
[2019-09-01] MEDS ORDERED: POTASSIUM CHLORIDE INJ 40 MEQ in LR 1,000 ML IV SCH (03:30)
[2019-09-01] MEDS ORDERED: hydrALAZINE INJ 20 MG/ML VIAL IV PRN (04:15)
[2019-09-01] MEDS: INSULIN IV RATE CHANGE DOCUMENTATION ML/HR XX SCH ×5 (05:12→15:05)
[2019-09-01 05:13] LABS: ABG BASE EXCESS -7.9 (-2.0-2.0); ABG HCO3 16.3 MEQ/L (22.0-26.0); ABG O2 SATURATION 99.3 % (95.0-99.0); ABG PARTIAL PRESSURE CO2 30.9 mmHg (35.0-45.0); ABG STANDARD HCO3 18.3 MEQ/L (22.0-26.0); ABG TOTAL CO2 17.3 MEQ/L (22.0-29.0); ABG pH (ARTERIAL) 7.341 UNITS (7.350-7.450)
[2019-09-01 05:47] LABS: INR 1.69; PROTHROMBIN TIME 19.6 SECONDS (11.8-14.0)
[2019-09-01 05:48] LABS: PARTIAL THROMBOPLASTIN TIME 36.5 SECONDS (25.0-38.4)
[2019-09-01] MEDS ORDERED: METOPROLOL 5 MG/5 ML VIAL IV STA ×2 (05:52→23:23)
[2019-09-01 05:57] LABS: HEMATOCRIT 46.9 % (42.0-52.0); HEMOGLOBIN 16.9 g/dl (13.5-17.5); MEAN CORPUSCULAR HEMOGLOBIN 31.4 pg (27.0-33.0); PLATELET COUNT, AUTOMATED 119 10^3/uL (150-450); RED BLOOD COUNT 5.39 10^6/uL (4.30-6.10); WHITE BLOOD COUNT 20.7 10^3/uL (4.0-10.0)
[2019-09-01 06:08] LABS: ALBUMIN 4.3 GM/DL (3.2-5.2); BILIRUBIN,TOTAL 0.5 MG/DL (0.2-1.0); CALCIUM LEVEL 8.5 MG/DL (8.5-10.1); CREATININE FOR GFR 1.52 MG/DL (0.70-1.30); GLOMERULAR FILTRATION RATE 50.6 (>56); MAGNESIUM LEVEL 2.4 MG/DL (1.8-2.4); PHOSPHORUS LEVEL 3.6 MG/DL (2.5-4.9); POTASSIUM SERUM 3.8 MEQ/L (3.5-5.1); TOTAL PROTEIN 7.7 GM/DL (6.4-8.2)
--- NOTE | 2019-09-01 06:46 | ECGEPIP ---
[facility] - ED Test Date: 2019-08-31 Pat Name: JU LUND Department: Room: [place] [address] Gender: Male Technical Systems Architect: ROHITH : [id number] Requested By: RAJINDER NAJERA Order Number: [id number] Reading MD: Justin Jeter Measurements Intervals Elaine Rate: 88 P: 54 ME: 147 QRS: 0 QRSD: 193 T: 66 QT: 482 QTc: 584 Interpretive Statements SINUS RHYTHM WITH OCCASIONAL SUPRAVENTRICULAR PREMATURE COMPLEXES RIGHT BUNDLE BRANCH BLOCK SIMILAR TO 03/26/18 Electronically Signed on 09-01-2019 6:46:08 EST by Justin Jeter
--- NOTE | 2019-09-01 07:51 | REP ---
Clinical: Endotracheal tube placement. Comparison: 04/22/2018. Findings: The endotracheal tube appears to be just below the thoracic inlet approximately 4.5 cm from the radha. Cardiomegaly is noted with evidence for prior sternotomy and aortic valve repair. Bilateral opacities suggest pulmonary vascular congestion although scattered left perihilar and lower lobe atelectasis cannot be excluded. No obvious effusion. No pneumothorax. Skeletal structures are intact. Impression: 1. Endotracheal tube approximately 4.5 cm above the radha. 2. Cardiomegaly and findings to suggest pulmonary vascular congestion along with scattered left-sided atelectasis. Electronically Signed by Haris Rodriguez MD 09/01/2019 07:43 A
--- NOTE | 2019-09-01 08:27 | REP ---
Portable chest, 07:31 a.m., single AP view with the patient upright: Comparison is 08/31/2019. The endotracheal tube remains in satisfactory location with the tip approximately 1 cm above the level of the aortic arch. The nasogastric tube is in satisfactory position, terminating in the upper abdomen, however the precise location of the distal tip is excluded at the inferior film margin. Sternotomy wires, cardiomegaly and a prosthetic cardiac valve are unchanged.. The pulmonary venous cephalization on the comparison study has decreased. There is minor atelectasis in the left costophrenic angle. Impression: The pulmonary venous cephalization has decreased. Electronically Signed by Al Reyes MD 09/01/2019 08:19 A
[2019-09-01] MEDS ORDERED: HEPARIN SOD (PORCINE) 5000 UNITS/ML VIAL (J1644 PER 1000UNITS) IV PRN (09:00)
[2019-09-01] MEDS ORDERED: HEPARIN SOD (PORCINE) 5000 UNITS/ML VIAL (J1644 PER 1000UNITS) IV ONE (09:00)
[2019-09-01] MEDS ORDERED: LR 500 ML IV ONE (09:00)
[2019-09-01] MEDS: LACRILUBE (AKWA TEARS) OPHTH OINT 3.5 GM OU SCH ×4 (09:00→21:08)
[2019-09-01] MEDS ORDERED: NOREPINEPHRINE 4 MG/4 ML AMP As Ordered ONE (09:02)
[2019-09-01] MEDS ORDERED: SODIUM BICARBONATE 8.4% INJ 50 ML SYRINGE As Ordered ONE (09:05)
[2019-09-01 09:08] LABS: ABG BASE EXCESS -9.5 (-2.0-2.0); ABG O2 SATURATION 96.9 % (95.0-99.0); ABG PARTIAL PRESSURE CO2 29.8 mmHg (35.0-45.0); ABG TOTAL CO2 15.9 MEQ/L (22.0-29.0)
[2019-09-01] MEDS: NOREPINEPHRINE BITARTRATE 8 MG in D5W 492 ML IV SCH ×4 (09:10→20:45)
[2019-09-01] MEDS ORDERED: MAGNESIUM SULFATE 1 GM/100 ML D5W BAG (10MG/ML) (J3475) As Ordered ONE (09:29)
[2019-09-01 09:36] LABS: INR 2.74; PROTHROMBIN TIME 28.9 SECONDS (11.8-14.0)
[2019-09-01 09:37] LABS: PARTIAL THROMBOPLASTIN TIME 46.8 SECONDS (25.0-38.4)
[2019-09-01 09:38] LABS: HEMATOCRIT 38.6 % (42.0-52.0); MEAN CORPUSCULAR HEMOGLOBIN 32.5 pg (27.0-33.0); MEAN CORPUSCULAR VOLUME 87.7 fl (80.0-96.0); PLATELET COUNT, AUTOMATED 108 10^3/uL (150-450); WHITE BLOOD COUNT 15.7 10^3/uL (4.0-10.0)
[2019-09-01 09:44] LABS: HEMOGLOBIN 14.3 g/dl (13.5-17.5)
[2019-09-01] MEDS: HEPARIN DRIP 25,000 UNITS in IV 1 EA IV SCH (09:53)
[2019-09-01] MEDS: FAMOTIDINE IV BAG 20 MG in IV 1 EA IV SCH ×2 (10:08→21:51)
[2019-09-01] MEDS: CHLORHEXIDINE GLUCONATE 0.12 % 15ML UDC (PERIDEX ORAL RINSE) MT SCH ×2 (10:08→20:27)
[2019-09-01 11:27] LABS: ALBUMIN 2.4 GM/DL (3.2-5.2); ALT/SGPT 83 U/L (12-78); BILIRUBIN,TOTAL 0.3 MG/DL (0.2-1.0); BLOOD UREA NITROGEN 17 MG/DL (7-18); CALCIUM LEVEL 5.2 MG/DL (8.5-10.1); CARBON DIOXIDE LEVEL 13 MEQ/L (21-32); CHLORIDE LEVEL 126 MEQ/L (98-107); CREATININE FOR GFR 0.88 MG/DL (0.70-1.30); GLOMERULAR FILTRATION RATE > 60.0 (>56); GLUCOSE, FASTING 106 MG/DL (70-100); MAGNESIUM LEVEL 1.2 MG/DL (1.8-2.4); PHOSPHORUS LEVEL 2.2 MG/DL (2.5-4.9); POTASSIUM SERUM 2.4 MEQ/L (3.5-5.1); SODIUM LEVEL 150 MEQ/L (136-145); TOTAL PROTEIN 4.4 GM/DL (6.4-8.2)
[2019-09-01] MEDS ORDERED: KCL 40MEQ IN D5/NS 1000ML 1,000 ML IV SCH (11:30)
[2019-09-01] MEDS: MAG SULF 1GM/100ML (MAG RUN) 1 GM in IV 1 EA IV SCH ×2 (11:51→12:59)
[2019-09-01] MEDS: KCL 20MEQ IN 100ML SWI (KRUN) 20 MEQ in IV 1 EA IV SCH ×4 (11:54→13:00)
[2019-09-01] MEDS ORDERED: POTASSIUM CHLORIDE 10% LIQ 20 MEQ/15 ML UDC NG ONE (12:00)
[2019-09-01] MEDS: CALCIUM GLUCONATE 1,000 MG in D5W MINI-BAG PLUS 100 ML IV SCH ×2 (14:01→15:09)
[2019-09-01 15:09] LABS: ABG BASE EXCESS -2.8 (-2.0-2.0); ABG HCO3 19.8 MEQ/L (22.0-26.0); ABG O2 SATURATION 96.6 % (95.0-99.0); ABG PARTIAL PRESSURE CO2 29.5 mmHg (35.0-45.0); ABG PARTIAL PRESSURE O2 80.8 mmHg (75.0-100.0); ABG STANDARD HCO3 22.1 MEQ/L (22.0-26.0); ABG TOTAL CO2 20.7 MEQ/L (22.0-29.0); ABG pH (ARTERIAL) 7.445 UNITS (7.350-7.450)
[2019-09-01 15:14] LABS: HEMATOCRIT 42.7 % (42.0-52.0); HEMOGLOBIN 15.8 g/dl (13.5-17.5); MEAN CORPUSCULAR HEMOGLOBIN 31.6 pg (27.0-33.0); MEAN CORPUSCULAR VOLUME 85.4 fl (80.0-96.0); PLATELET COUNT, AUTOMATED 170 10^3/uL (150-450); WHITE BLOOD COUNT 22.4 10^3/uL (4.0-10.0)
[2019-09-01 15:32] LABS: INR 1.48; PROTHROMBIN TIME 17.6 SECONDS (11.8-14.0)
[2019-09-01 15:47] LABS: CALCIUM LEVEL 9.3 MG/DL (8.5-10.1); CREATININE FOR GFR 1.33 MG/DL (0.70-1.30); PHOSPHORUS LEVEL 1.5 MG/DL (2.5-4.9); POTASSIUM SERUM 3.8 MEQ/L (3.5-5.1)
[2019-09-01 15:48] LABS: ALBUMIN 3.9 GM/DL (3.2-5.2); BILIRUBIN,TOTAL 0.6 MG/DL (0.2-1.0); CK-MB VALUE MASS 18.2 NG/ML (<3.6); MAGNESIUM LEVEL 2.7 MG/DL (1.8-2.4); MB/CK RELATIVE INDEX 8.92 (< OR =4); TOTAL PROTEIN 6.9 GM/DL (6.4-8.2); TROPONIN I 1.94 NG/ML (< 0.10)
[2019-09-01 19:04] LABS: ABG BASE EXCESS -1.7 (-2.0-2.0); ABG O2 SATURATION 97.2 % (95.0-99.0); ABG PARTIAL PRESSURE CO2 27.2 mmHg (35.0-45.0); ABG PARTIAL PRESSURE O2 84.2 mmHg (75.0-100.0); ABG STANDARD HCO3 23.1 MEQ/L (22.0-26.0); ABG TOTAL CO2 20.8 MEQ/L (22.0-29.0); ABG pH (ARTERIAL) 7.484 UNITS (7.350-7.450)
--- NOTE | 2019-09-01 19:05 | HPEPDOC ---
[facility] Medical History & Physical History and Physical CHIEF COMPLAINT: HISTORY OF PRESENT ILLNESS: PAST MEDICAL HISTORY: 1. . 2. . 3. . PAST SURGICAL HISTORY: 1. . 2. . 3. . SOCIAL HISTORY: Marital status: . Resides in: Children: Employment: Tobacco use: ETOH: Illicit drug use: Tattoos done unprofessionally: . IV drug use: Other relevant social factors: FAMILY HISTORY: Father: Mother: Siblings: Children: Hereditary Diseases: Unexpected deaths due to medical reasons: ALLERGIES: Please see below. REVIEW OF SYSTEMS: CONSTITUTIONAL: . HEENT: . CARDIOVASCULAR: . RESPIRATORY: . GASTROINTESTINAL: . GENITOURINARY: . SKIN: . MUSCULOSKELETAL: . NEUROLOGICAL: . PSYCHIATRIC: . ENDOCRINE: . HEMATOLOGIC/LYMPHATIC: . HOME MEDICATIONS: Please see below. PHYSICAL EXAMINATION: VITAL SIGNS: Temperature , pulse , respiratory rate , blood pressure , pulse oximetry % on room air. GENERAL APPEARANCE: . HEENT: . CARDIOVASCULAR: . LUNGS: . ABDOMEN: . MUSCULOSKELETAL: . EXTREMITIES: . NEUROLOGICAL: . PSYCHIATRIC: . LABORATORY DATA: See below. IMAGING: MICROBIOLOGY: Please see below. Asystolic Cardiac Arrest - Unknown etiology this time, however, suspect cardiac cause given significant cardiac history and sudden collapse - Plan for echo in the morning. Heparin drip considered however patient undergoing targeted temperature management and with recent dosing of Xarelto Heparin drip to be held pending echo and elevated troponins. No ST elevation noted on EKG - Will start targeted-temperature management to temperature 36C, monitor I's every 4 hours, including ABG -Will use propofol for sedation - Plan for Art-line and central line placement - Initial CT head showing signs of anoxic injury with likely poor outcome #Anoxic encephalopathy - CT head with poor romo-white matter differentiation highly suggestive of severe anoxic injury - Discussed at length with family will proceed with targeted temperature management and await neurologic status - If no improvement in mentation will consider repeat CT had or MRI in 48-72 hours #Acute hypoxic and hypercapnic respiratory failure - Secondary to cardiac arrest - Currently intubated, monitor ABGs every 4 hours #Cardiogenic shock - With Levophed started in emergency department now titrated off - Will resume Levophed if needed to maintain a map greater than 65 #TARSHA - Secondary cardiac arrest - Continues to have good urine output, will monitor strict I's and O's #Hyperglycemia - No known history of diabetes - Will check A1c - Start insulin drip on hypothermia #Afib with RVR - Reported per EMS, now sinus tach - Patient with a history of A. fib on Xarelto - We will consider starting heparin drip in the morning echo and troponins are pending Diet: NPO while undergoing hypothermia DVT/GI Ppx: Heparin subcutaneous, Pepcid L/T/D: ETT, OG, right femoral central line, left radial art line, Thomas, rectal temperature probe Drips: Propofol, and insulin Code Status: Full code. With this patient's surrogate decision maker area discussed at length with who at this time would like patient to be full code. We addressed with family daily as hospital course progresses. Dispo: We will continue to monitor in the ICU was as of 1:1. Critical Care Time: 45 minutes. Time spent obtaining history, evaluated patient, interpreting labs, and assessing success of interventions. Time spent independ ent of other providers and total procedures.. [id number] Vital Signs Vital Signs Date Time Temp Pulse Resp B/P (MAP) Pulse Ox O2 Delivery O2 Flow Rate FiO2 09/01/19 18:45 99.0 87 25 115/67 (67) 98 Ventilator 40 89/54 (67) 09/01/19 10:00 40.0 Laboratory Data Labs 24H Laboratory Tests 2 08/31/19 20:10: POC pH (Misc Panel) 6.920*L, POC Base Excess (Misc Panel) -17.0L, POC Saturated Percent O2 (Misc) 92L, POC pO2 (Misc Panel) 104.0, POC pCO2 (Misc Panel) 74.5*H, POC HCO3 (Misc Panel) 15.3L, POC Total CO2 (Misc Panel) 18.0L 08/31/19 20:27: Immature Granulocyte % (Auto) , Neutrophils (%) (Auto) , Lymphocytes # (Auto) , Nucleated Red Blood Cells % (auto) 0.1H, Neutrophils 39, Band Neutrophils 1, Lymphocytes (Manual) 48H, Monocytes (Manual) 2, Eosinophils (Manual) 3, Metamyelocytes 1H, Myelocytes 2H, Atypical Lymphocytes 4, Red Blood Cell Morphology NORMAL, Platelet Estimate NORMAL, Prothrombin Time 21.5H, Prothromb Time International Ratio 1.90, Activated Partial Thromboplast Time 39.4H, Anion Gap 18H, Glomerular Filtration Rate 53.0L, Calcium Level 8.0L, Phosphorus Level 9.1H, Magnesium Level 2.2, Total Creatine Kinase 173, Creatine Kinase MB 2.7, Creatine Kinase MB Relative Index 1.56, Troponin I 0.12H 08/31/19 21:22: POC pH (Misc Panel) 7.040*L, POC Base Excess (Misc Panel) -15.0L, POC Saturated Percent O2 (Misc) 98, POC pO2 (Misc Panel) 159.0H, POC pCO2 (Misc Panel) 58.1H, POC HCO3 (Misc Panel) 15.7L, POC Total CO2 (Misc Panel) 17.0L 09/01/19 00:53: Bedside Glucose (Misc Panel) 193H 09/01/19 01:22: Nucleated Red Blood Cells % (auto) 0.0, Prothrombin Time 23.0H, Prothromb Time International Ratio 2.06, Activated Partial Thromboplast Time 31.7, Blood Gas Bicarbonate Standard 18.0L, Arterial Blood pH 7.313L, Arterial Blood Partial Pressure CO2 33.8L, Arterial Blood Partial Pressure O2 158.9H, Arterial Blood Total CO2 17.9L, Arterial Blood HCO3 16.9L, Arterial Blood Base Excess -8.4L, Arterial Blood Oxygen Saturation 99.1H, Anion Gap 12, Glomerular Filtration Rate > 60.0, Lactic Acid Level 5.6*H, Calcium Level 5.7#*L, Phosphorus Level 2.4#L, Magnesium Level 1.3L, Total Bilirubin 0.4, Aspartate Amino Transf (AST/SGOT) 105H, Alanine Aminotransferase (ALT/SGPT) 110H, Alkaline Phosphatase 79, Total Protein 5.2L, Albumin 3.0L, Albumin/Globulin Ratio 1.36 09/01/19 03:19: Bedside Glucose (Misc Panel) 184H 09/01/19 04:02: Bedside Glucose (Misc Panel) 205H 09/01/19 05:08: Blood Gas Bicarbonate Standard 18.3L, Arterial Blood pH 7.341L, Arterial Blood Partial Pressure CO2 30.9L, Arterial Blood Partial Pressure O2 188.0H, Arterial Blood Total CO2 17.3L, Arterial Blood HCO3 16.3L, Arterial Blood Base Excess - 7.9L, Arterial Blood Oxygen Saturation 99.3H 09/01/19 05:10: Bedside Glucose (Misc Panel) 202H 09/01/19 05:19: Nucleated Red Blood Cells % (auto) 0.0, Prothrombin Time 19.6H, Prothromb Time International Ratio 1.69, Activated Partial Thromboplast Time 36.5, Anion Gap 12, Glomerular Filtration Rate 50.6L, Lactic Acid Level 4.8*H, Calcium Level 8.5#, Phosphorus Level 3.6#, Magnesium Level 2.4, Total Bilirubin 0.5, Aspartate Amino Transf (AST/SGOT) 145H, Alanine Aminotransferase (ALT/SGPT) 152H, Alkaline Phosphatase 112, Total Protein 7.7#, Albumin 4.3#, Albumin/Globulin Ratio 1.26 09/01/19 06:55: Bedside Glucose (Misc Panel) 163H 09/01/19 08:53: Nucleated Red Blood Cells % (auto) 0.0, Prothrombin Time 28.9H, Prothromb Time International Ratio 2.74, Activated Partial Thromboplast Time 46.8H, Anion Gap 11, Glomerular Filtration Rate > 60.0, Calcium Level 5.2#*L, Phosphorus Level 2.2#L, Magnesium Level 1.2L, Total Bilirubin 0.3, Aspartate Amino Transf (AST/SGOT) 72H, Alanine Aminotransferase (ALT/SGPT) 83H, Alkaline Phosphatase 61, Total Protein 4.4#L, Albumin 2.4#L, Albumin/Globulin Ratio 1.20, Blood Gas Bicarbonate Standard 17.0L, Arterial Blood pH 7.320L, Arterial Blood Partial Pressure CO2 29.8L, Arterial Blood Partial Pressure O2 92.0, Arterial Blood Total CO2 15.9L, Arterial Blood HCO3 15.0L, Arterial Blood Base Excess -9.5L, Arterial Blood Oxygen Saturation 96.9 09/01/19 08:54: Lactic Acid Level 5.6*H 09/01/19 08:57: Bedside Glucose (Misc Panel) 124H 09/01/19 11:10: Bedside Glucose (Misc Panel) 157H 09/01/19 13:06: Bedside Glucose (Misc Panel) 152H 09/01/19 14:58: Nucleated Red Blood Cells % (auto) 0.0, Prothrombin Time 17.6H, Prothromb Time International Ratio 1.48, Activated Partial Thromboplast Time 140.0*H, Blood Gas Bicarbonate Standard 22.1, Arterial Blood pH 7.445, Arterial Blood Partial Pressure CO2 29.5L, Arterial Blood Partial Pressure O2 80.8, Arterial Blood Total CO2 20.7L, Arterial Blood HCO3 19.8L, Arterial Blood Base Excess -2.8L, Arterial Blood Oxygen Saturation 96.6, Oxygen Delivery Device MECHAN. VENT, Anion Gap 7L, Glomerular Filtration Rate 59.0, Lactic Acid Level 2.7*H, Calcium Level 9.3#, Phosphorus Level 1.5#L, Magnesium Level 2.7H, Total Bilirubin 0.6#, Aspartate Amino Transf (AST/SGOT) 97H, Alanine Aminotransferase (ALT/SGPT) 120H, Alkaline Phosphatase 92, Total Creatine Kinase 204, Creatine Kinase MB 18.2H, Creatine Kinase MB Relative Index 8.92H, Troponin I 1.94#*H, Total Protein 6.9#, Albumin 3.9#, Albumin/Globulin Ratio 1.30 09/01/19 15:01: Bedside Glucose (Misc Panel) 159H 09/01/19 17:04: Bedside Glucose (Misc Panel) 119H 09/01/19 18:48: 09/01/19 18:50: Bedside Glucose (Misc Panel) 118H CBC/BMP Laboratory Tests 08/31/19 20:27 09/01/19 01:22 09/01/19 05:19 09/01/19 08:53 09/01/19 14:58 Microbiology Microbiology 09/01/19 Blood Culture, Received Pending 09/01/19 Blood Culture, Received Pending Home Medications Scheduled (Multivitamin Men) 1 Tab Tab, 1 TAB PO DAILY Allopurinol (Zyloprim) 300 Mg Tab, 300 MG PO QHS Atorvastatin Calcium (Lipitor) 20 Mg Tab, 20 MG PO QHS Bromocriptine Mesylate (Bromocriptine Mesylate) 2.5 Mg Tab, 2.5 MG PO QHS Fluticasone Propionate (Fluticasone Propionate) 50 Mcg/Act Spr, 2 SPRAYS NARES DAILY Furosemide (Furosemide) 40 Mg Tab, 40 MG PO DAILY Lisinopril (Lisinopril) 10 Mg Tab, 10 MG PO DAILY Metoprolol Succinate (Metoprolol Succinate) 25 Mg Tab, 12.5 MG PO DAILY Omeprazole (Omeprazole) 20 Mg Cap, 20 MG PO DAILY Potassium Chloride (K-Tab ER) 20 Meq Tab, 40 MEQ PO DAILY Rivaroxaban (Xarelto) 20 Mg Tab, 20 MG PO DAILY Vitamin B Complex (Vitamin B Complex) 1 Tab Tab, 1 TAB PO DAILY Scheduled PRN Albuterol Sulf (Albuterol Sulfate) 2.5 Mg/3 Ml Nebu, 2.5 MG INH Q6H PRN for DYSPNEA Albuterol Sulfate (Proair Hfa) 108 Mcg/Act Aer, 2 PUFFS INH Q4HP PRN for DYSPNEA Allergies Coded Allergies: No Known Allergies (Unverified , 10/05/18) ALLY NORIEGA DO Sep 01, 2019 19:05
[2019-09-01 19:08] LABS: HEMATOCRIT 42.5 % (42.0-52.0); HEMOGLOBIN 15.7 g/dl (13.5-17.5); MEAN CORPUSCULAR HEMOGLOBIN 31.5 pg (27.0-33.0); MEAN CORPUSCULAR VOLUME 85.2 fl (80.0-96.0); PLATELET COUNT, AUTOMATED 176 10^3/uL (150-450); RED BLOOD COUNT 4.99 10^6/uL (4.30-6.10); WHITE BLOOD COUNT 24.3 10^3/uL (4.0-10.0)
[2019-09-01 19:17] LABS: MEAN CORPUSCULAR HGB CONC 36.9 g/dl (32.0-36.5)
[2019-09-01 19:26] LABS: INR 1.41
[2019-09-01 19:45] LABS: ALBUMIN 3.9 GM/DL (3.2-5.2); ALT/SGPT 121 U/L (12-78); BILIRUBIN,TOTAL 0.9 MG/DL (0.2-1.0); BLOOD UREA NITROGEN 24 MG/DL (7-18); CALCIUM LEVEL 9.6 MG/DL (8.5-10.1); CARBON DIOXIDE LEVEL 21 MEQ/L (21-32); CHLORIDE LEVEL 115 MEQ/L (98-107); CK-MB VALUE MASS 14.4 NG/ML (<3.6); CPK CREATINE PHOSPHOKINASE 181 U/L (39-308); CREATININE FOR GFR 1.27 MG/DL (0.70-1.30); GLOMERULAR FILTRATION RATE > 60.0 (>56); GLUCOSE, FASTING 116 MG/DL (70-100); MAGNESIUM LEVEL 2.7 MG/DL (1.8-2.4); MB/CK RELATIVE INDEX 7.96 (< OR =4); PHOSPHORUS LEVEL 1.9 MG/DL (2.5-4.9); POTASSIUM SERUM 3.7 MEQ/L (3.5-5.1); SODIUM LEVEL 144 MEQ/L (136-145); TOTAL PROTEIN 7.2 GM/DL (6.4-8.2)
[2019-09-01] MEDS ORDERED: POTASSIUM CHLORIDE 10% LIQ 20 MEQ/15 ML UDC PO ONE (20:15)
--- NOTE | 2019-09-01 20:36 | IPNPDOC ---
Date Seen The patient was seen on 09/01/19. Progress Note SUBJECTIVE: Patient seen and examined. Overnight, patient with worsening hypokalemia, hypomagnesium, and hypocalcium requiring placement. Patient remained on the targeted-temperature management throughout the night and reached goal targeted temperature of 36 at 12:45 AM. Patient remains unresponsive with fixed and dilated pupils. When respiratory rate is decreased on the ventilator however patient does initiate breaths over the vent. Patient without a cough or gap or corneal reflex. Early this morning patient was noted to have a sudden decrease in blood pressure with systolic blood pressures as low as 40. Patient also noted with ectopic rhythm and nonsustained runs of V. tach on the monitor. Stat labs were ordered however there was an issue with the instrumentation and chemistry labs were delayed. Patient was empirically given calcium and 1 g of magnesium. Propofol was discontinued due to hypotension and a bolus of IV fluids was initiated until we've if it could be started. With interventions patient's ectopy decreased and there was no further runs of nonsustained V. tach. Blood pressure improved with support of Levophed and therefore IV bolus was discontinued. During arrhythmias decision was also made and targeted temperature management and patient was rewarmed to 37. Patient reached 37 at 1 PM. Given that targeted temperature management was discontinued propofol was discontinued. Brief Hospital Course: Patient is a 59-year-old male who presents to the emergency department on 08/31/2019 after cardiac arrest status post ROSC. Patient with sudden collapsed and unresponsiveness. reports that EMS arrived at patient's bedside approximately 10 minutes after initial collapse. Patient reportedly had return to circulation after CPR with an initial rate of A. fib with RVR, but interrupted a hospital suffered asystolic cardiac arrest. Patient achieved for asking and Route however CPR time apparently prolonged. Initial head CT showed poor romo-white matter differentiation concerning for anoxic injury. Patient started on target-temperature management, but was aborted prematurely due to arrythmias and hemodynamic instability. OBJECTIVE PHYSICAL EXAMINATION: VITAL SIGNS: Please see below. GENERAL: Unresponsive HENT: Normocephalic atraumatic EYES: Fixed and dilated, no scleral icterus CARDIOVASCULAR: Slightly tachycardia with heart rate in the 110s, no lower extremity edema RESPIRATORY: Coarse breath sounds bilaterally, patient intubated ABDOMINAL: Soft, nondistended, hypoactive bowel sounds EXTREMITIES: No spontaneous movements of upper or lower extremities NEUROLOGICAL: Unresponsive with GCS of 2T SKIN: Cool to touch dry, midline sternal surgical scar, oozing from site of right femoral central line. No hematoma palpable LABORATORY DATA, IMAGING STUDIES, MICROBIOLOGY: Labs and images reviewed. Significant electrolyte imbalances noted with hypokalemia and hypomagnesium. Echocardiogram: Independently visualized during acquisition. Septal dyskinesis noted. ASSESSMENT AND PLAN: #Asystolic Cardiac Arrest - Unknown etiology this time, however, suspect cardiac cause given significant cardiac history and sudden collapse. Echo with regional wall motion abnormali, suggesting potential NH - Await final Echo read - Trend troponins and initate heparin drip - Discontinue targeted temperature management - Stop propofol - Keep K > 4.0, Mag > 2.0 - Initial CT head showing signs of anoxic injury with likely poor outcome, plan to repeat in 24-48 hours #Anoxic encephalopathy - CT head with poor romo-white matter differentiation highly suggestive of severe anoxic injury - Discussed at length with family will monitor for signs of neurologic i mprovement - Consider repeat CT had or MRI in 48-72 hours #Acute hypoxic and hypercapnic respiratory failure - Secondary to cardiac arrest - Currently intubated, monitor ABGs every 4 hours #Cardiogenic shock - With Levophed restarted. Titrate to MAP > 65 #TARSHA, worsening - Secondary cardiac arrest - Continues to have good urine output, will monitor strict I's and O's #Hyperglycemia - No known history of diabetes - Will check A1c - Continue insulin gtt #Afib with RVR - Reported per EMS, now sinus tach - Heparin gtt #Hypomagnesium, Hypokalemia, Hypocalcemia - Continue to check labs q4h. goal K > 4.0, Mag > 2.0, Ca > 8.0 #Leukocytosis - Make be reactive but considering history will consider infectious causes as w ell, most likely an aspiration. Will start Unasyn. Diet: NPO, if remains intubated for prolonged period will initiate tube feeds DVT/GI Ppx: Heparin gtt Pepcid L/T/D: ETT, OG, right femoral central line, left radial art line, Thomas, rectal temperature probe Drips: Insulin gtt Code Status: DNR. Discussed with patient's overall conditioning, concerning CT findings, and overall poor prognosis. At this time, patient would like to continue current treatment and await neurostatus, however, does not want further chest compressions. Dispo: We will continue to monitor in the ICU was as of 1:1. Critical Care Time: 90 minutes. Time spent immediately at the bedside give patient's hemodynamic instability and life-threatening arrythmias monitoring changes with intervention. Time also spending discussing important goals of care with . Patient made DNR [id number], [id number] VS, I&O, 24H, Fishbone Vital Signs/I&O Vital Signs Date Time Temp Pulse Resp B/P (MAP) Pulse Ox O2 Delivery O2 Flow Rate FiO2 09/01/19 19:54 89 26 98 40 09/01/19 19:54 Ventilator 09/01/19 19:00 99.0 109/64 (78) 91/50 (65) 09/01/19 10:00 40.0 I&O- Last 24 Hours up to 6 AM 09/01/19 06:00 Intake Total 819 ml Output Total 1540 ml Balance -721 ml Laboratory Data 24H LABS Laboratory Tests 2 08/31/19 21:22: POC pH (Misc Panel) 7.040*L, POC Base Excess (Misc Panel) -15.0L, POC Saturated Percent O2 (Misc) 98, POC pO2 (Misc Panel) 159.0H, POC pCO2 (Misc Panel) 58.1H, POC HCO3 (Misc Panel) 15.7L, POC Total CO2 (Misc Panel) 17.0L 09/01/19 00:53: Bedside Glucose (Misc Panel) 193H 09/01/19 01:22: Nucleated Red Blood Cells % (auto) 0.0, Prothrombin Time 23.0H, Prothromb Time International Ratio 2.06, Activated Partial Thromboplast Time 31.7, Blood Gas Bicarbonate Standard 18.0L, Arterial Blood pH 7.313L, Arterial Blood Partial Pressure CO2 33.8L, Arterial Blood Partial Pressure O2 158.9H, Arterial Blood Total CO2 17.9L, Arterial Blood HCO3 16.9L, Arterial Blood Base Excess -8.4L, Arterial Blood Oxygen Saturation 99.1H, Anion Gap 12, Glomerular Filtration Rate > 60.0, Lactic Acid Level 5.6*H, Calcium Level 5.7#*L, Phosphorus Level 2.4#L, Magnesium Level 1.3L, Total Bilirubin 0.4, Aspartate Amino Transf (AST/SGOT) 105H, Alanine Aminotransferase (ALT/SGPT) 110H, Alkaline Phosphatase 79, Total Protein 5.2L, Albumin 3.0L, Albumin/Globulin Ratio 1.36 09/01/19 03:19: Bedside Glucose (Misc Panel) 184H 09/01/19 04:02: Bedside Glucose (Misc Panel) 205H 09/01/19 05:08: Blood Gas Bicarbonate Standard 18.3L, Arterial Blood pH 7.341L, Arterial Blood Partial Pressure CO2 30.9L, Arterial Blood Partial Pressure O2 188.0H, Arterial Blood Total CO2 17.3L, Arterial Blood HCO3 16.3L, Arterial Blood Base Excess - 7.9L, Arterial Blood Oxygen Saturation 99.3H 09/01/19 05:10: Bedside Glucose (Misc Panel) 202H 09/01/19 05:19: Nucleated Red Blood Cells % (auto) 0.0, Prothrombin Time 19.6H, Prothromb Time International Ratio 1.69, Activated Partial Thromboplast Time 36.5, Anion Gap 12, Glomerular Filtration Rate 50.6L, Lactic Acid Level 4.8*H, Calcium Level 8.5#, Phosphorus Level 3.6#, Magnesium Level 2.4, Total Bilirubin 0.5, Aspartate Amino Transf (AST/SGOT) 145H, Alanine Aminotransferase (ALT/SGPT) 152H, Alkaline Phosphatase 112, Total Protein 7.7#, Albumin 4.3#, Albumin/Globulin Ratio 1.26 09/01/19 06:55: Bedside Glucose (Misc Panel) 163H 09/01/19 08:53: Nucleated Red Blood Cells % (auto) 0.0, Prothrombin Time 28.9H, Prothromb Time International Ratio 2.74, Activated Partial Thromboplast Time 46.8H, Blood Gas Bicarbonate Standard 17.0L, Arterial Blood pH 7.320L, Arterial Blood Partial Pressure CO2 29.8L, Arterial Blood Partial Pressure O2 92.0, Arterial Blood Total CO2 15.9L, Arterial Blood HCO3 15.0L, Arterial Blood Base Excess -9.5L, Arterial Blood Oxygen Saturation 96.9, Anion Gap 11, Glomerular Filtration Rate > 60.0, Calcium Level 5.2#*L, Phosphorus Level 2.2#L, Magnesium Level 1.2L, Total Bilirubin 0.3, Aspartate Amino Transf (AST/SGOT) 72H, Alanine Aminotransferase (ALT/SGPT) 83H, Alkaline Phosphatase 61, Total Protein 4.4#L, Albumin 2.4#L, Albumin/Globulin Ratio 1.20 09/01/19 08:54: Lactic Acid Level 5.6*H 09/01/19 08:57: Bedside Glucose (Misc Panel) 124H 09/01/19 11:10: Bedside Glucose (Misc Panel) 157H 09/01/19 13:06: Bedside Glucose (Misc Panel) 152H 09/01/19 14:58: Nucleated Red Blood Cells % (auto) 0.0, Prothrombin Time 17.6H, Prothromb Time International Ratio 1.48, Activated Partial Thromboplast Time 140.0*H, Blood Gas Bicarbonate Standard 22.1, Arterial Blood pH 7.445, Arterial Blood Partial Pressure CO2 29.5L, Arterial Blood Partial Pressure O2 80.8, Arterial Blood Total CO2 20.7L, Arterial Blood HCO3 19.8L, Arterial Blood Base Excess -2.8L, Arterial Blood Oxygen Saturation 96.6, Oxygen Delivery Device MECHAN. VENT, Ani on Gap 7L, Glomerular Filtration Rate 59.0, Lactic Acid Level 2.7*H, Calcium Level 9.3#, Phosphorus Level 1.5#L, Magnesium Level 2.7H, Total Bilirubin 0.6#, Aspartate Amino Transf (AST/SGOT) 97H, Alanine Aminotransferase (ALT/SGPT) 120H, Alkaline Phosphatase 92, Total Creatine Kinase 204, Creatine Kinase MB 18.2H, Creatine Kinase MB Relative Index 8.92H, Troponin I 1.94#*H, Total Protein 6.9#, Albumin 3.9#, Albumin/Globulin Ratio 1.30 09/01/19 15:01: Bedside Glucose (Misc Panel) 159H 09/01/19 17:04: Bedside Glucose (Misc Panel) 119H 09/01/19 18:48: Nucleated Red Blood Cells % (auto) 0.0, Prothrombin Time 17.0H, Prothromb Time International Ratio 1.41, Blood Gas Bicarbonate Standard 23.1, Arterial Blood pH 7.484H, Arterial Blood Partial Pressure CO2 27.2L, Arterial Blood Partial Pressure O2 84.2, Arterial Blood Total CO2 20.8L, Arterial Blood HCO3 20.0L, Arterial Blood Base Excess -1.7, Arterial Blood Oxygen Saturation 97.2, Oxygen Delivery Device MECHAN. VENT, Anion Gap 8, Glomerular Filtration Rate > 60.0, Lactic Acid Level 1.6, Calcium Level 9.6, Phosphorus Level 1.9#L, Magnesium Level 2.7H, Total Bilirubin 0.9, Aspartate Amino Transf (AST/SGOT) 90H, Alanine Aminotransferase (ALT/SGPT) 121H, Alkaline Phosphatase 92, Total Creatine Kinase 181, Creatine Kinase MB 14.4H, Creatine Kinase MB Relative Index 7.96H, Troponin I 1.70*H, Total Protein 7.2, Albumin 3.9, Albumin/Globulin Ratio 1.18 09/01/19 18:50: Bedside Glucose (Misc Panel) 118H CBC/BMP Laboratory Tests 09/01/19 01:22 09/01/19 05:19 09/01/19 08:53 09/01/19 14:58 09/01/19 18:48 Microbiology Microbiology 09/01/19 Blood Culture, Received Pending 09/01/19 Blood Culture, Received Pending ALLY NORIEGA DO Sep 01, 2019 20:32
[2019-09-01] MEDS: AMPICILLIN SOD/SULBACTAM SOD 3 GM in D5W MINI-BAG PLUS 100 ML IV SCH (21:12)
[2019-09-01 23:21] LABS: ABG HCO3 19.5 MEQ/L (22.0-26.0); ABG O2 SATURATION 96.4 % (95.0-99.0); ABG PARTIAL PRESSURE CO2 28.9 mmHg (35.0-45.0); ABG PARTIAL PRESSURE O2 79.9 mmHg (75.0-100.0); ABG TOTAL CO2 20.3 MEQ/L (22.0-29.0); ABG pH (ARTERIAL) 7.446 UNITS (7.350-7.450)
[2019-09-02] VITALS (24 sets, daily range): BP systolic 84–157; BP diastolic 45–96; O2SAT 97–99
[2019-09-02 00:16] LABS: HEMATOCRIT 45.2 % (42.0-52.0); HEMOGLOBIN 16.4 g/dl (13.5-17.5); MEAN CORPUSCULAR HEMOGLOBIN 31.4 pg (27.0-33.0); MEAN CORPUSCULAR HGB CONC 36.3 g/dl (32.0-36.5); MEAN CORPUSCULAR VOLUME 86.6 fl (80.0-96.0); PLATELET COUNT, AUTOMATED 173 10^3/uL (150-450); RED BLOOD COUNT 5.22 10^6/uL (4.30-6.10); WHITE BLOOD COUNT 23.7 10^3/uL (4.0-10.0)
[2019-09-02 00:23] LABS: INR 1.29; PROTHROMBIN TIME 15.8 SECONDS (11.8-14.0)
[2019-09-02 00:33] LABS: CK-MB VALUE MASS 11.5 NG/ML (<3.6); CREATININE FOR GFR 1.31 MG/DL (0.70-1.30); MB/CK RELATIVE INDEX 7.28 (< OR =4); TROPONIN I 1.34 NG/ML (< 0.10)
[2019-09-02 00:34] LABS: ALBUMIN 4.2 GM/DL (3.2-5.2); BILIRUBIN,TOTAL 0.8 MG/DL (0.2-1.0); CALCIUM LEVEL 9.8 MG/DL (8.5-10.1); MAGNESIUM LEVEL 2.6 MG/DL (1.8-2.4); PHOSPHORUS LEVEL 2.6 MG/DL (2.5-4.9); POTASSIUM SERUM 3.6 MEQ/L (3.5-5.1); TOTAL PROTEIN 7.3 GM/DL (6.4-8.2)
[2019-09-02] MEDS ORDERED: NS 1,000 ML IV ONE (00:45)
[2019-09-02] MEDS ORDERED: KCL 20MEQ IN 100ML SWI (KRUN) 20 MEQ in IV 1 EA IV ONE ×4 (01:00→02:15)
[2019-09-02] MEDS: levETIRAcetam INJection 1,000 MG in D5W 100 ML IV SCH ×3 (01:00→13:45)
[2019-09-02] MEDS: HEPARIN DRIP 25,000 UNITS in IV 1 EA IV SCH (02:24)
[2019-09-02] MEDS: AMPICILLIN SOD/SULBACTAM SOD 3 GM in D5W MINI-BAG PLUS 100 ML IV SCH ×4 (02:27→20:12)
[2019-09-02 03:56] LABS: HEMATOCRIT 44.1 % (42.0-52.0); HEMOGLOBIN 15.8 g/dl (13.5-17.5); MEAN CORPUSCULAR HEMOGLOBIN 31.4 pg (27.0-33.0); MEAN CORPUSCULAR HGB CONC 35.8 g/dl (32.0-36.5); MEAN CORPUSCULAR VOLUME 87.7 fl (80.0-96.0); PLATELET COUNT, AUTOMATED 133 10^3/uL (150-450); RED BLOOD COUNT 5.03 10^6/uL (4.30-6.10); WHITE BLOOD COUNT 20.1 10^3/uL (4.0-10.0)
[2019-09-02 04:15] LABS: ABG BASE EXCESS -4.5 (-2.0-2.0); ABG O2 SATURATION 97.8 % (95.0-99.0); ABG PARTIAL PRESSURE CO2 31.3 mmHg (35.0-45.0); ABG PARTIAL PRESSURE O2 101.9 mmHg (75.0-100.0); ABG STANDARD HCO3 20.8 MEQ/L (22.0-26.0); ABG TOTAL CO2 19.9 MEQ/L (22.0-29.0)
[2019-09-02] MEDS: INSULIN HUMAN REGULAR 100 UNITS in NS 99 ML IV SCH ×2 (04:19→13:46)
[2019-09-02 04:51] LABS: ALBUMIN 3.8 GM/DL (3.2-5.2); ALT/SGPT 113 U/L (12-78); BILIRUBIN,TOTAL 0.7 MG/DL (0.2-1.0); BLOOD UREA NITROGEN 22 MG/DL (7-18); CARBON DIOXIDE LEVEL 21 MEQ/L (21-32); CHLORIDE LEVEL 121 MEQ/L (98-107); CK-MB VALUE MASS 8.3 NG/ML (<3.6); CPK CREATINE PHOSPHOKINASE 145 U/L (39-308); CREATININE FOR GFR 1.29 MG/DL (0.70-1.30); GLOMERULAR FILTRATION RATE > 60.0 (>56); GLUCOSE, FASTING 127 MG/DL (70-100); MAGNESIUM LEVEL 2.4 MG/DL (1.8-2.4); MB/CK RELATIVE INDEX 5.72 (< OR =4); PHOSPHORUS LEVEL 3.2 MG/DL (2.5-4.9); POTASSIUM SERUM 4.6 MEQ/L (3.5-5.1); SODIUM LEVEL 149 MEQ/L (136-145); TOTAL PROTEIN 6.9 GM/DL (6.4-8.2); TROPONIN I 1.11 NG/ML (< 0.10)
[2019-09-02] MEDS: PANTOPRAZOLE 40MG INJ (PROTONIX) (C9113) IV SCH ×2 (05:39→17:18)
[2019-09-02] MEDS: NOREPINEPHRINE BITARTRATE 8 MG in D5W 492 ML IV SCH (06:21)
[2019-09-02 06:37] LABS: HEMOGLOBIN A1c 5.8 %
[2019-09-02 06:39] LABS: INR 1.34; PROTHROMBIN TIME 16.3 SECONDS (11.8-14.0)
[2019-09-02 06:40] LABS: PARTIAL THROMBOPLASTIN TIME 66.3 SECONDS (25.0-38.4)
[2019-09-02 07:14] LABS: HEMATOCRIT 43.2 % (42.0-52.0); HEMOGLOBIN 15.4 g/dl (13.5-17.5); MEAN CORPUSCULAR HEMOGLOBIN 31.7 pg (27.0-33.0); MEAN CORPUSCULAR HGB CONC 35.6 g/dl (32.0-36.5); MEAN CORPUSCULAR VOLUME 88.9 fl (80.0-96.0); PLATELET COUNT, AUTOMATED 139 10^3/uL (150-450); RED BLOOD COUNT 4.86 10^6/uL (4.30-6.10); WHITE BLOOD COUNT 18.5 10^3/uL (4.0-10.0)
[2019-09-02 07:55] LABS: ALBUMIN 3.8 GM/DL (3.2-5.2); BILIRUBIN,TOTAL 0.8 MG/DL (0.2-1.0); CALCIUM LEVEL 8.7 MG/DL (8.5-10.1); CREATININE FOR GFR 1.35 MG/DL (0.70-1.30); MAGNESIUM LEVEL 2.8 MG/DL (1.8-2.4); MB/CK RELATIVE INDEX 5.51 (< OR =4); PHOSPHORUS LEVEL 2.7 MG/DL (2.5-4.9); POTASSIUM SERUM 4.3 MEQ/L (3.5-5.1); TOTAL PROTEIN 6.8 GM/DL (6.4-8.2); TROPONIN I 1.03 NG/ML (< 0.10)
--- NOTE | 2019-09-02 08:05 | REP ---
Portable chest, 06:46 a.m., single AP view with the patient semi upright: Comparison is 09/01/2019. The pulmonary venous cephalization continues to decrease and now appears normal. There are no focal infiltrates or pleural effusions. There is cardiomegaly, unchanged. There are sternotomy wires and cardiac valve replacement, unchanged. The endotracheal tube and nasogastric tube remain in satisfactory positions, unchanged. Impression: The pulmonary venous cephalization has resolved. No other interval change. Electronically Signed by Al Reyes MD 09/02/2019 07:57 A
[2019-09-02 08:15] LABS: ABG O2 SATURATION 96.2 % (95.0-99.0); ABG PARTIAL PRESSURE CO2 28.5 mmHg (35.0-45.0); ABG PARTIAL PRESSURE O2 82.1 mmHg (75.0-100.0); ABG STANDARD HCO3 20.3 MEQ/L (22.0-26.0); ABG TOTAL CO2 18.9 MEQ/L (22.0-29.0); ABG pH (ARTERIAL) 7.416 UNITS (7.350-7.450)
[2019-09-02] MEDS: CHLORHEXIDINE GLUCONATE 0.12 % 15ML UDC (PERIDEX ORAL RINSE) MT SCH ×2 (08:54→20:11)
[2019-09-02] MEDS: LACRILUBE (AKWA TEARS) OPHTH OINT 3.5 GM OU SCH ×3 (08:54→20:12)
[2019-09-02] MEDS ORDERED: FUROSEMIDE 20 MG/2 ML VIAL (J1940) IV ONE (11:00)
[2019-09-02 11:49] LABS: HEMATOCRIT 41.7 % (42.0-52.0); HEMOGLOBIN 14.6 g/dl (13.5-17.5); MEAN CORPUSCULAR HEMOGLOBIN 31.4 pg (27.0-33.0); MEAN CORPUSCULAR VOLUME 89.7 fl (80.0-96.0); PLATELET COUNT, AUTOMATED 140 10^3/uL (150-450); RED BLOOD COUNT 4.65 10^6/uL (4.30-6.10); WHITE BLOOD COUNT 20.1 10^3/uL (4.0-10.0)
[2019-09-02 12:00] LABS: INR 1.47; PROTHROMBIN TIME 17.5 SECONDS (11.8-14.0)
[2019-09-02] MEDS ORDERED: NOREPINEPHRINE BITARTRATE 16 MG in D5W 492 ML IV SCH (12:00)
[2019-09-02 12:01] LABS: PARTIAL THROMBOPLASTIN TIME 69.5 SECONDS (25.0-38.4)
[2019-09-02 12:16] LABS: ALBUMIN 3.4 GM/DL (3.2-5.2); BILIRUBIN,TOTAL 0.9 MG/DL (0.2-1.0); CALCIUM LEVEL 8.7 MG/DL (8.5-10.1); CK-MB VALUE MASS 5.2 NG/ML (<3.6); CREATININE FOR GFR 1.51 MG/DL (0.70-1.30); MAGNESIUM LEVEL 2.4 MG/DL (1.8-2.4); MB/CK RELATIVE INDEX 4.86 (< OR =4); PHOSPHORUS LEVEL 2.8 MG/DL (2.5-4.9); POTASSIUM SERUM 4.3 MEQ/L (3.5-5.1); TOTAL PROTEIN 6.8 GM/DL (6.4-8.2); TROPONIN I 1.02 NG/ML (< 0.10)
[2019-09-02] MEDS: NOREPINEPHRINE BITARTRATE 16 MG in D5W 484 ML IV SCH (13:46)
--- NOTE | 2019-09-02 14:01 | ECHO ---
DATE OF PROCEDURE: 09/01/2019 DATE OF : 1960 AGE: 59 REFERRING PROVIDER: Dr. Samreen Ferguson PATIENT LOCATION: Room 3201 REASON FOR THE ECHOCARDIOGRAM: Abnormal electrocardiogram (EKG). 2D MEASUREMENTS: IVS: 1.9 cm LV: 5.1 cm LVPW: 1.3 cm LA: 4.9 cm Aorta: 4.0 cm RV: 3.5 cm IVC: 2.3 cm DOPPLER MEASUREMENTS: Peak velocity across the aortic valve: 1.2 m/s Peak velocity across the LVOT: 0.51 m/s Mitral E: 0.41, Mitral A: 0.52 with a ratio of 0.8 Maximum tricuspid valve velocity: 2.0 m/s 2D COMMENTS: 1. Normal left ventricular size with mildly increased left ventricular wall thickness but severely depressed global left ventricular systolic function. There was diffuse hypokinesis with estimated left ventricular systolic ejection fraction is 20 to 25%. 2. Mildly enlarged left atrium. The right atrium and right ventricle appear to be normal in size. 3. Atrial septum appeared to be normal without evidence of defect or shunt. 4. Mildly to moderately enlarged aortic root. 5. Trace pericardial effusion noted. No evidence of cardiac tamponade. 6. Bioprosthetic valve noted in the aortic valve position, TAVR. Mildly calcified mitral annulus with normal appearing mitral valve leaflet motion. Normal tricuspid valve and pulmonic valve. The proximal pulmonary artery branches were not well visualized. 7. The inferior vena cava was mildly enlarged. Central venous pressure is mildly normal. DOPPLER: It detects trace tricuspid regurgitation and trace pulmonic regurgitation. Calculated pulmonary artery systolic pressure appeared to be normal. IMPRESSION: 1. Severe global left ventricular systolic dysfunction with regional wall motion abnormalities consistent with probably prior history of coronary artery disease. The anterior wall, as well as the anterior septum and the apex were akinesic. There are some features of left ventricular diastolic dysfunction. 2. Bioprosthetic aortic valve, TAVR. No significant aortic regurgitation detected. Peak gradient across the aortic valve was normal but it could be artifactual. The patient has a severe depressed global left ventricular diastolic function. 3. Mildly dilated left atrium with mild mitral regurgitation and mitral annulus calcification. 4. Trace tricuspid regurgitation. 5. Trace pulmonic regurgitation. 6. Trace pericardial effusion. 7. There are features of elevated central venous pressure, the inferior vena cava was mildly enlarged. [facility]
[2019-09-02] MEDS ORDERED: VASOPRESSIN INJ 20 UNITS in NS 499 ML IV SCH (14:15)
[2019-09-02] MEDS ORDERED: DOPamine HCL 800 MG in IV 1 EA IV SCH (15:00)
[2019-09-02] MEDS: INSULIN IV RATE CHANGE DOCUMENTATION ML/HR XX SCH ×3 (16:07→22:14)
[2019-09-02] MEDS: HYDROCORTISONE 100 MG/2 ML VIAL (J1720 PER 1) IV SCH (20:11)
[2019-09-02] MEDS ORDERED: TRANEXAMIC ACID 100 MG/ML 10ML VIAL XX ONE (20:30)
--- NOTE | 2019-09-02 21:10 | IPNPDOC ---
Date Seen The patient was seen on 09/02/19. Progress Note SUBJECTIVE: Patient seen and examined. Overnight patient with tachycardia and given 1 dose of labetalol. Patient also noted to have electrolyte abnormalities which were replaced. There was concern of GI bleeding for possible bloody NG output. Therefore Protonix twice a day was started. No blood in NG tube noted this morning, therefore heparin drip was continued. Patient does however continue to ooze from right femoral groin site with sandbag in place. Throughout the day patient with bigeminy and worsening hypotension. Levophed was switched to double concentrated Levophed for concerns for fluid overload and was steadily increasing throughout the day. Dopamine was started for inotropic effect. Next Patient continues to be unresponsive with fixed and dilated pupils, no corneal reflex, no cough or gag. Patient does however breathe over the vent. Brief Hospital Course: Patient is a 59-year-old male who presents to the emergency department on after cardiac arrest status post ROSC. Patient with sudden collapsed and unresponsiveness. reports that EMS arrived at patient's bedside approximately 10 minutes after initial collapse. Patient reportedly had return to circulation after CPR with an initial rate of A. fib with RVR, but interrupted a hospital suffered asystolic cardiac arrest. Patient achieved for asking and Route however CPR time apparently prolonged. Initial head CT showed poor romo-white matter differentiation concerning for anoxic injury. Patient started on target-temperature management, but was aborted prematurely due to arrythmias and hemodynamic instability. OBJECTIVE PHYSICAL EXAMINATION: VITAL SIGNS: Please see below. GENERAL: Unresponsive HENT: Normocephalic atraumatic EYES: Fixed and dilated, no scleral icterus CARDIOVASCULAR: Slightly tachycardia with heart rate in the 110s with a bigeminy rhythm on monitor, trace lower extremity edema RESPIRATORY: Coarse breath sounds bilaterally, patient intubated ABDOMINAL: Soft, nondistended, hypoactive bowel sounds EXTREMITIES: No spontaneous movements of upper or lower extremities NEUROLOGICAL: Unresponsive with GCS of 2T SKIN: Warm and dry, midline sternal surgical scar, oozing from site of right femoral central line. No hematoma palpable LABORATORY DATA, IMAGING STUDIES, MICROBIOLOGY: Labs and images reviewed. Significant electrolyte imbalances noted with hypokalemia and hypomagnesium. Echocardiogram: Report reviewed showing global hypokinesis ASSESSMENT AND PLAN: #Asystolic Cardiac Arrest - Unknown etiology this time, however, suspect cardiac cause given significant cardiac history and sudden collapse. Echo with regional wall motion abnormali, suggesting potential IL - Echo with global hypokinesis -Continue heparin drip monitor for bleeding - Keep K > 4.0, Mag > 2.0 - Initial CT head showing signs of anoxic injury with likely poor outcome, plan to repeat CT in the morning #Anoxic encephalopathy - CT head with poor romo-white matter differentiation highly suggestive of severe anoxic injury - Discussed at length with family will monitor for signs of neurologic improvement - Repeat CT in the morning #Acute hypoxic and hypercapnic respiratory failure - Secondary to cardiac arrest - Currently intubated, #Cardiogenic shock - With Levophed restarted. Titrate to MAP > 65 - Will add dopamine -Given extreme shock state hydrocortisone 50 every 6 #TARSHA, worsening - Secondary cardiac arrest -Urine output decreased without response to Lasix, strict I's and O's #Hyperglycemia - No known history of diabetes -A1c was 5.8% - Continue insulin gtt #Afib with RVR - Reported per EMS, now sinus tach - Heparin gtt #Hypomagnesium, Hypokalemia, Hypocalcemia - Continue to check labs q4h. goal K > 4.0, Mag > 2.0, Ca > 8.0 #Leukocytosis - Make be reactive but considering history will consider infectious causes as well, most likely an aspiration. Continue Unasyn Diet: NPO, if remains intubated for prolonged period will initiate tube feeds DVT/GI Ppx: Heparin gtt Pepcid L/T/D: ETT, OG, right femoral central line, left radial art line, Thomas, rectal temperature probe Drips: Insulin gtt Code Status: DNR. Discussed with patient's overall conditioning, concerning CT findings, and overall poor prognosis. At this time, would like to continue care and awake repeat CT head in the am. Dispo: We will continue to monitor in the ICU. Critical Care Time: 60 minutes. Time spent immediately at the bedside give patient's hemodynamic instability and life-threatening arrythmias monitoring changes with intervention. Time also spending discussing important goals of care with . [place] VS, I&O, 24H, [facility] Vital Signs/I&O Vital Signs Date Time Temp Pulse Resp B/P (MAP) Pulse Ox O2 Delivery O2 Flow Rate FiO2 09/02/19 19:10 99.1 130 22 104/48 94 Ventilator 40 122/58 2/21/20 10:00 40.0 I&O- Last 24 Hours up to 6 AM 09/02/19 06:00 Intake Total 4633 ml Output Total 6285 ml Balance -1652 ml Laboratory Data 24H LABS Laboratory Tests 2 09/01/19 21:07: Bedside Glucose (Misc Panel) 119H 09/01/19 23:13: Blood Gas Bicarbonate Standard 22.0, Arterial Blood pH 7.446, Arterial Blood Partial Pressure CO2 28.9L, Arterial Blood Partial Pressure O2 79.9, Arterial Blood Total CO2 20.3L, Arterial Blood HCO3 19.5L, Arterial Blood Base Excess - 3.0L, Arterial Blood Oxygen Saturation 96.4, Oxygen Delivery Device MECHAN. VENT 09/01/19 23:42: Nucleated Red Blood Cells % (auto) 0.0, Prothrombin Time 15.8H, Prothromb Time International Ratio 1.29, Activated Partial Thromboplast Time 53.6H, Anion Gap 7L, Glomerular Filtration Rate 60.0, Lactic Acid Level 2.1*H, Calcium Level 9.8, Phosphorus Level 2.6#, Magnesium Level 2.6H, Total Bilirubin 0.8, Aspartate Amino Transf (AST/SGOT) 88H, Alanine Aminotransferase (ALT/SGPT) 122H, Alkaline Phosphatase 100, Total Creatine Kinase 158, Creatine Kinase MB 11.5H, Creatine Kinase MB Relative Index 7.28H, Troponin I 1.34#H, Total Protein 7.3, Albumin 4.2, Albumin/Globulin Ratio 1.35 09/02/19 00:04: Bedside Glucose (Misc Panel) 117H 09/02/19 02:09: Bedside Glucose (Misc Panel) 102 09/02/19 03:46: Nucleated Red Blood Cells % (auto) 0.0, Anion Gap 7L, Glomerular Filtration Rate > 60.0, Calcium Level 9.0, Phosphorus Level 3.2#, Magnesium Level 2.4, Total Bilirubin 0.7, Aspartate Amino Transf (AST/SGOT) 75H, Alanine Aminotransferase (ALT/SGPT) 113H, Alkaline Phosphatase 99, Total Creatine Kinase 145, Creatine Kinase MB 8.3H, Creatine Kinase MB Relative Index 5.72H, Troponin I 1.11H, Total Protein 6.9, Albumin 3.8, Albumin/Globulin Ratio 1.23 09/02/19 03:47: Lactic Acid Level 2.3*H 09/02/19 04:08: Blood Gas Bicarbonate Standard 20.8L, Arterial Blood pH 7.400, Arterial Blood Partial Pressure CO2 31.3L, Arterial Blood Partial Pressure O2 101.9H, Arterial Blood Total CO2 19.9L, Arterial Blood HCO3 19.0L, Arterial Blood Base Excess - 4.5L, Arterial Blood Oxygen Saturation 97.8 09/02/19 06:02: Bedside Glucose (Misc Panel) 125H 09/02/19 06:08: Prothrombin Time 16.3H, Prothromb Time International Ratio 1.34, Activated Partial Thromboplast Time 66.3H, Estimated Mean Plasma Glucose 120H, Hemoglobin A1c 5.8 09/02/19 06:50: Nucleated Red Blood Cells % (auto) 0.0, Anion Gap 6L, Glomerular Filtration Rate 58.0, Lactic Acid Level 2.1*H, Calcium Level 8.7, Phosphorus Level 2.7, Magnesium Level 2.8H, Total Bilirubin 0.8, Aspartate Amino Transf (AST/SGOT) 63H, Alanine Aminotransferase (ALT/SGPT) 103H, Alkaline Phosphatase 93, Total Creatine Kinase 127, Creatine Kinase MB 7.0H, Creatine Kinase MB Relative Index 5.51H, Troponin I 1.03H, Total Protein 6.8, Albumin 3.8, Albumin/Globulin Ratio 1.27 09/02/19 08:02: Bedside Glucose (Misc Panel) 125H 09/02/19 08:05: Blood Gas Bicarbonate Standard 20.3L, Arterial Blood pH 7.416, Arterial Blood Partial Pressure CO2 28.5L, Arterial Blood Partial Pressure O2 82.1, Arterial Bl ood Total CO2 18.9L, Arterial Blood HCO3 18.0L, Arterial Blood Base Excess - 5.0L, Arterial Blood Oxygen Saturation 96.2 09/02/19 09:57: Bedside Glucose (Misc Panel) 129H 09/02/19 11:23: Nucleated Red Blood Cells % (auto) 0.0, Prothrombin Time 17.5H, Prothromb Time International Ratio 1.47, Activated Partial Thromboplast Time 69.5H, Anion Gap 4L, Glomerular Filtration Rate 51.0L, Lactic Acid Followup at 4 Hours 1.9, Calcium Level 8.7, Phosphorus Level 2.8, Magnesium Level 2.4, Total Bilirubin 0.9, Aspartate Amino Transf (AST/SGOT) 54H, Alanine Aminotransferase (ALT/SGPT) 89H, Alkaline Phosphatase 87, Total Creatine Kinase 107, Creatine Kinase MB 5.2H, Creatine Kinase MB Relative Index 4.86H, Troponin I 1.02H, Total Protein 6.8, Albumin 3.4, Albumin/Globulin Ratio 1.00 09/02/19 11:33: Bedside Glucose (Misc Panel) 107H 09/02/19 13:57: Bedside Glucose (Misc Panel) 112H 09/02/19 15:44: Bedside Glucose (Misc Panel) 138H 09/02/19 17:52: Bedside Glucose (Misc Panel) 145H 09/02/19 20:40: Bedside Glucose (Misc Panel) 162H CBC/BMP Laboratory Tests 09/01/19 23:42 09/02/19 03:46 09/02/19 06:50 09/02/19 11:23 Microbiology Microbiology 09/02/19 Gram Stain - Final, Resulted 09/02/19 Sputum Culture, Resulted Pending 09/01/19 Blood Culture - Preliminary, Resulted No growth after 24 hours . All specim... 09/01/19 Blood Culture - Preliminary, Resulted No growth after 24 hours . All specim... ALLY NORIEGA DO Sep 02, 2019 21:03
[2019-09-03] VITALS (15 sets, daily range): BP systolic 85–215; BP diastolic 49–90; O2SAT 97–99
[2019-09-03] MEDS: INSULIN IV RATE CHANGE DOCUMENTATION ML/HR XX SCH ×4 (00:08→06:09)
[2019-09-03] MEDS: INSULIN HUMAN REGULAR 100 UNITS in NS 99 ML IV SCH (00:08)
[2019-09-03] MEDS: levETIRAcetam INJection 1,000 MG in D5W 100 ML IV SCH (01:39)
[2019-09-03] MEDS: HYDROCORTISONE 100 MG/2 ML VIAL (J1720 PER 1) IV SCH (02:12)
[2019-09-03] MEDS: AMPICILLIN SOD/SULBACTAM SOD 3 GM in D5W MINI-BAG PLUS 100 ML IV SCH (02:58)
[2019-09-03] MEDS: NOREPINEPHRINE BITARTRATE 16 MG in D5W 484 ML IV SCH (04:05)
--- NOTE | 2019-09-03 05:36 | REPVR ---
PROCEDURE INFORMATION: Exam: CT Head Without Contrast Exam date and time: 09/03/2019 5:18 AM Age: 59 years old Clinical indication: Condition or disease; Other: Anoxic injury; Additional info: S/P cardiac arrest, evaluate extent of anoxic injury TECHNIQUE: Imaging protocol: Computed tomography of the head without contrast. Radiation optimization: All CT scans at this facility use at least one of these dose optimization techniques: automated exposure control; mA and/or kV adjustment per patient size (includes targeted exams where dose is matched to clinical indication); or iterative reconstruction. COMPARISON: CT Head without contrast 08/31/2019 8:00 PM FINDINGS: Brain: Diffuse effacement of peripheral sulci. Extensive loss of romo and white matter differentiation with general decreased attenuation of the cerebral hemispheres. Obliteration of basal cisterns. Diffuse increased density within sulci and dural reflections. Findings are consistent with pseudosubarachnoid hemorrhage associated with cerebral edema. Ventricles: Decreased size of the central ventricular system. Bones/joints: Unremarkable. No acute fracture. Sinuses: Fluid in the left maxillary sinus and sphenoid sinus and opacification of most ethmoid air cells which is increased since the prior study. Mastoid air cells: Visualized mastoid air cells are well aerated. Soft tissues: Unremarkable. IMPRESSION: 1. Increased cerebral edema and mass effect since 08/31/2019 with pseudosubarachnoid hemorrhage. There is effacement of sulci, decreased size of central ventricular system and loss of basal cisterns. 2. Fluid or mucosal thickening involving the ethmoid, sphenoid and left maxillary sinuses, increased since the prior study. Electronically signed by: Britton Chapman On 09/03/2019 05:35:30 AM
[2019-09-03 05:44] LABS: ABG BASE EXCESS -6.2 (-2.0-2.0); ABG HCO3 20.5 MEQ/L (22.0-26.0); ABG O2 SATURATION 94.1 % (95.0-99.0); ABG PARTIAL PRESSURE CO2 44.8 mmHg (35.0-45.0); ABG PARTIAL PRESSURE O2 73.6 mmHg (75.0-100.0); ABG STANDARD HCO3 19.4 MEQ/L (22.0-26.0); ABG TOTAL CO2 21.9 MEQ/L (22.0-29.0); ABG pH (ARTERIAL) 7.278 UNITS (7.350-7.450)
[2019-09-03] MEDS: PANTOPRAZOLE 40MG INJ (PROTONIX) (C9113) IV SCH (05:47)
[2019-09-03 05:55] LABS: HEMATOCRIT 27.3 % (42.0-52.0); MEAN CORPUSCULAR HGB CONC 34.1 g/dl (32.0-36.5); MEAN CORPUSCULAR VOLUME 93.8 fl (80.0-96.0); RED BLOOD COUNT 2.91 10^6/uL (4.30-6.10); WHITE BLOOD COUNT 15.1 10^3/uL (4.0-10.0)
[2019-09-03 06:10] LABS: PLATELET COUNT, AUTOMATED 83 10^3/uL (150-450)
[2019-09-03 06:11] LABS: HEMOGLOBIN 9.3 g/dl (13.5-17.5)
[2019-09-03 06:28] LABS: ALBUMIN 2.6 GM/DL (3.2-5.2); ALT/SGPT 61 U/L (12-78); BILIRUBIN,TOTAL 0.8 MG/DL (0.2-1.0); BLOOD UREA NITROGEN 23 MG/DL (7-18); CALCIUM LEVEL 6.9 MG/DL (8.5-10.1); CARBON DIOXIDE LEVEL 19 MEQ/L (21-32); CHLORIDE LEVEL 130 MEQ/L (98-107); CREATININE FOR GFR 1.12 MG/DL (0.70-1.30); GLOMERULAR FILTRATION RATE > 60.0 (>56); GLUCOSE, FASTING 179 MG/DL (70-100); POTASSIUM SERUM 3.7 MEQ/L (3.5-5.1); SODIUM LEVEL 154 MEQ/L (136-145); TOTAL PROTEIN 5.3 GM/DL (6.4-8.2)
--- NOTE | 2019-09-03 08:12 | REP ---
Portable chest, 07:12 a.m., single AP view with the patient semi upright: Comparison is 09/02/2019. There is minor atelectasis inferiorly in the right lung. Lung rinaldi otherwise clear. Cardiac size is upper normal. The There are sternotomy wires and cardiac valve replacement, unchanged. The endotracheal tube and nasogastric tube remain in satisfactory positions, unchanged. Impression: Minor atelectasis inferiorly in the right lung. Electronically Signed by Al Reyes MD 09/03/2019 08:04 A
[2019-09-03] MEDS ORDERED: GLYCOPYRROLATE INJ 0.2 MG/ML 2 ML VIAL IV STA (10:35)
[2019-09-03] MEDS ORDERED: GLYCOPYRROLATE INJ 0.2 MG/ML 2 ML VIAL As Ordered ONE (10:39)
[2019-09-03] MEDS ORDERED: MORPHINE 4 MG/ML 1ML VIAL/SYRINGE (J2270) As Ordered ONE (10:40)
[2019-09-03] MEDS ORDERED: MORPHINE 2 MG/ML 1ML VIAL (J2270) IV PRN (10:45)
[2019-09-03] MEDS ORDERED: MORPHINE SULF IN 0.9% NACL 100 MG in IV 1 EA IV SCH ×2 (11:00)
--- NOTE | 2019-09-03 15:35 | DS.PDOC ---
Discharge Summary General Date of Admission Aug 31, 2019 at 21:56 Date of Discharge 09/03/2019 Discharge Summary PROCEDURES PERFORMED DURING STAY: Endotracheal intubation, arterial line placement, central line placement. ADMITTING DIAGNOSES: #Asystolic Cardiac Arrest #Anoxic encephalopathy #Acute hypoxic and hypercapnic respiratory failure #Cardiogenic shock #TARSHA #Hyperglycemia #Afib with RVR #Hypomagnesium #Hypokalemia #Hypocalcemia #Leukocytosis DISCHARGE DIAGNOSES: Same admitting diagnosis. COMPLICATIONS/CHIEF COMPLAINT: Cardiac Arrest. HISTORY OF PRESENT ILLNESS and HOSPITAL COURSE: Patient is a 59-year-old male who presents to the emergency department on 08/31/2019 after cardiac arrest status post ROSC. Patient with sudden collapsed and unresponsiveness. reports that EMS arrived at patient's bedside approximately 10 minutes after initial collapse. Patient reportedly had return to circulation after CPR with an initial rate of A. fib with RVR, but interrupted a hospital suffered asystolic cardiac arrest. Patient achieved for asking and Route however CPR time apparently prolonged. Initial head CT showed poor romo-white matter differentiation concerning for anoxic injury. Patient started on target-temperature management, but was aborted prematurely due to arrythmias and hemodynamic instability. Patient remained unresponsive with a GCS = 2T, however, continued to breath over the ventilator. Repeat CT showed increased cerebral edema and worsening mass effect with pseudo-subarachnoid hemorrhage. There is also notation of effacement of the sock I decreased central ventricular system and loss of basal cisterns. Discussed goals of care with family at length and given patient's overall poor prognosis and inevitable mortality family requested comfort measures only and liberation from the ventilator and vasoactive medications. Patient was given morphine and Robinul for comfort. Following medication administration vasoactive pressors were discontinued and ventilator was removed. Patient on 9 09/03/2019 at 11:05 AM. Time of expiration, the patient was unresponsive to verbal and noxious stimuli, no heart tones were heard. There are no spontaneous respirations. Corneal reflexes were absent, pupils extended dilated. He was asystolic on telemetry. DISCHARGE MEDICATIONS: None ALLERGIES: Please see below. PHYSICAL EXAMINATION ON DISCHARGE: VITAL SIGNS: Heart rate = 0, respirations = 0, blood pressure = 050 patient was unresponsive to verbal and noxious stimuli, no heart tones were heard. There are no spontaneous respirations. Corneal reflexes were absent, pupils extended dilated. He was asystolic on telemetr LABORATORY DATA: Please see below. IMAGING: Cerebral edema with mass effect on CT head from 09/03/2019 PROGNOSIS: DISPOSITION: 20 . DISCHARGE CONDITION: . Critical Care Time/Time spent on discharge: 40 minutes time spent discussing patient's overall poor prognosis with family including , Sarita. Discussions included goals of care. After lengthy discussion family requesting comfort measures only with liberation from ventilator and withdrawal of vasoactive medications. Time also was included spent immediately at patient's bedside providing comfort measure therapy in the setting of terminal extubation. Vital Signs/I&Os Heart rate = 0, respiratory rate = 0, blood pressure = 0/0 Laboratory Data Labs 24H Laboratory Tests 2 09/02/19 15:44: Bedside Glucose (Misc Panel) 138H 09/02/19 17:52: Bedside Glucose (Misc Panel) 145H 09/02/19 20:40: Bedside Glucose (Misc Panel) 162H 09/02/19 22:13: Bedside Glucose (Misc Panel) 188H 09/02/19 23:57: Bedside Glucose (Misc Panel) 184H 09/03/19 02:11: Bedside Glucose (Misc Panel) 200H 09/03/19 03:59: Bedside Glucose (Misc Panel) 174H 09/03/19 05:34: Nucleated Red Blood Cells % (auto) 0.0, Immature Platelet Fraction 1.8, Activated Partial Thromboplast Time 54.5H, Blood Gas Bicarbonate Standard 19.4L, Arterial Blood pH 7.278L, Arterial Blood Partial Pressure CO2 44.8, Arterial Blood Partial Pressure O2 73.6L, Arterial Blood Total CO2 21.9L, Arterial Blood HCO3 20.5L, Arterial Blood Base Excess -6.2L, Arterial Blood Oxygen Saturation 94.1L, Anion Gap 5L, Glomerular Filtration Rate > 60.0, Calcium Level 6.9#L, Magnesium Level 2.0, Total Bilirubin 0.8, Aspartate Amino Transf (AST/SGOT) 64H, Alanine Aminotransferase (ALT/SGPT) 61, Alkaline Phosphatase 83, Total Protein 5.3#L, Albumin 2.6#L, Albumin/Globulin Ratio 0.96L 09/03/19 06:08: Bedside Glucose (Misc Panel) 197H 09/03/19 07:39: Bedside Glucose (Misc Panel) 189H CBC/BMP Laboratory Tests 09/03/19 05:34 FSBS Laboratory Tests Test 09/02/19 15:44 09/02/19 17:52 09/02/19 20:40 09/02/19 22:13 Range/Units Bedside Glucose (Misc Panel) 138 145 162 188 70-105 MG/DL Test 09/02/19 23:57 09/03/19 02:11 09/03/19 03:59 09/03/19 06:08 Range/Units Bedside Glucose (Misc Panel) 184 200 174 197 70-105 MG/DL Test 09/03/19 07:39 Range/Units Bedside Glucose (Misc Panel) 189 70-105 MG/DL Microbiology Microbiology 09/02/19 Gram Stain - Final, Resulted 09/02/19 Sputum Culture, Resulted Pending 09/01/19 Blood Culture - Preliminary, Resulted No Growth after 48 hours. All Specime... 09/01/19 Blood Culture - Preliminary, Resulted No Growth after 48 hours. All Specime... Discharge Medications Scheduled (Multivitamin Men) 1 Tab Tab, 1 TAB PO DAILY, (Reported) Allopurinol (Zyloprim) 300 Mg Tab, 300 MG PO QHS, (Reported) Atorvastatin Calcium (Lipitor) 20 Mg Tab, 20 MG PO QHS, (Reported) Bromocriptine Mesylate (Bromocriptine Mesylate) 2.5 Mg Tab, 2.5 MG PO QHS, (Reported) Fluticasone Propionate (Fluticasone Propionate) 50 Mcg/Act Spr, 2 SPRAYS NARES DAILY, (Reported) Furosemide (Furosemide) 40 Mg Tab, 40 MG PO DAILY, (Reported) Lisinopril (Lisinopril) 10 Mg Tab, 10 MG PO DAILY, (Reported) Metoprolol Succinate (Metoprolol Succinate) 25 Mg Tab, 12.5 MG PO DAILY, (Reported) Omeprazole (Omeprazole) 20 Mg Cap, 20 MG PO DAILY, (Reported) Potassium Chloride (K-Tab ER) 20 Meq Tab, 40 MEQ PO DAILY, (Reported) Rivaroxaban (Xarelto) 20 Mg Tab, 20 MG PO DAILY, (Reported) Vitamin B Complex (Vitamin B Complex) 1 Tab Tab, 1 TAB PO DAILY, (Reported) Scheduled PRN Albuterol Sulf (Albuterol Sulfate) 2.5 Mg/3 Ml Nebu, 2.5 MG INH Q6H PRN for DYSPNEA, (Reported) Albuterol Sulfate (Proair Hfa) 108 Mcg/Act Aer, 2 PUFFS INH Q4HP PRN for DYS PNEA, (Reported) Allergies Coded Allergies: No Known Allergies (Unverified , 10/05/18) ALLY NORIEGA DO Sep 03, 2019 15:02
== END 2019-09-03 11:05 | disposition expired | DRG 200 ==
LOC: M ED 19:44 → M ED INP 21:56 → ENRESERVTM 23:11 → ENRESERVDT 23:11 → M ICU 23:44
PROVIDERS: ADMIT Internal Medicine; ATTEND Internal Medicine
DX: Q23.9 Congenital malformation of aortic and mitral valves, unspecified (principal); G93.6 Cerebral edema; R57.0 Cardiogenic shock; I46.2 Cardiac arrest due to underlying cardiac condition; I95.9 Hypotension, unspecified; J96.01 Acute respiratory failure with hypoxia; E83.42 Hypomagnesemia; J96.02 Acute respiratory failure with hypercapnia; I48.91 Unspecified atrial fibrillation; I46.9 Cardiac arrest, cause unspecified; G93.1 Anoxic brain damage, not elsewhere classified; N17.9 Acute kidney failure, unspecified; E83.51 Hypocalcemia; E87.6 Hypokalemia; D72.829 Elevated white blood cell count, unspecified; Z51.5 Encounter for palliative care; Z79.899 Other long term (current) drug therapy; I10 Essential (primary) hypertension; Z95.2 Presence of prosthetic heart valve; R73.9 Hyperglycemia, unspecified